=== PATIENT | male | born 1955 | race Caucasian/White ===

== ENCOUNTER 2019-03-08 09:04 | Inpatient (IN) ==
[2019-03-08] MEDS ORDERED: ASPIRIN CHEW 324 MG PO STA (09:15)
--- NOTE | 2019-03-08 09:33 | XRay Report ---
XR chest 1V portable CLINICAL HISTORY: Chest pain. COMPARISON STUDY: No previous studies for comparison. FINDINGS: Note is made of a cervical spine fusion. There is no pneumothorax. There may be a trace rig ht pleural effusion. Lower lung interstitial thickening and mild opacities are noted. Suspected Kerle y B lines are noted. Cardiac size is normal. Mediastinal contours are unremarkable. IMPRESSION: 1. Mild interstitial thickening which may reflect pulmonary edema. 2. Trace right pleural effusion. Mild bibasilar opacities. Electronically signed by: Jered Rangel M.D. 03/08/2019 9:32 AM
[2019-03-08 09:37] LABS: Basophils # (auto) 0.02 K/uL (0-0.2); Basophils % (auto) 0.2 %; Eosinophils # (auto) 0.09 K/uL (0-0.5); Eosinophils % (auto) 1.1 %; Hematocrit (blood only) 37.5 % (42-52); Hemoglobin 12.8 g/dL (14.0-18.0); Immature Granulocytes # (auto) 0.03 K/uL (0.00-0.02); Immature Granulocytes % (auto) 0.4 %; Lymphocytes # (auto) 1.08 K/uL (1.2-3.4); Lymphocytes % (auto) 13.3 %; Mean Corpuscular Hgb Conc 34.1 g/dL (32-36); Mean Platelet Volume 9.1 fL (7.4-10.4); Monocytes # (auto) 0.48 K/uL (0.11-0.59); Monocytes % (auto) 5.9 %; Neutrophils # (auto) 6.44 K/uL (1.4-6.5); Neutrophils % (auto) 79.1 %; Platelet Count 237 K/uL (130-400); RDW Coefficient of Variation 13.8 % (11.5-14.5); RDW Standard Deviation 44.8 fL (36.4-46.3); Red Blood Count 4.26 M/uL (4.7-6.1); White Blood Count 8.14 K/uL (4.8-10.8)
--- NOTE | 2019-03-08 09:42 | Emergency Department Note ---
Entered by Ava Diaz acting as a scribe for Shimon Arredondo DO History of Present Illness General Chief complaint: Chest Pain Stated complaint: CHEST PAIN Source: patient and family History of Present Illness Onset (ago): day(s) (this morning) Location: chest Radiation: back Severity: similar to prior episodes Pain Consistency: + other (episode) Maximum Pain Intensity: 5 Quality: + other (pressure) Relieved By: + rest Associated symptoms: + denies other symptoms (leg swelling, abdominal pain, diarrhea) and + diaphoresis; no nausea/vomiting (nausea) and no shortness of breath The patient is a 63-year-old male who presented to the emergency department for an evaluation of chest pain. The patient describes the chest pain as a pressure which wraps around his lower chest. He states it also is felt in his back. The patient states the pain does not go to his neck. It began this morning at approximately 6-6:30 am while he was walking into work. The patient states the pain his moderately improved with rest. He did take his usual medications this morning which included his Eliquis. The patient was seen recently by his primary aerial crop duster for atrial fibrillation. He had a transesophageal echocardiogram as well as a cardioversion of atrial fibrillation. The patient has not felt that he is gone back in atrial fibrillation. He denies having any lower extremity swelling. He does describe some diaphoresis but no shortness of breath. The patient states he has had similar symptoms in the past but he states that this episode has gone longer than usual otherwise it appears to be in the same position. Additional history is obtained from the patient's significant other. She states the patient was also started on a beta-bree after the cardioversion. The patient denies having any abdominal pain. He has no nausea or diarrhea. The patient called his primary aerial crop duster office and was sent to the emergency department for further evaluation. Home Medications Home Medications Medication Instructions Recorded Confirmed Type Eliquis 5 mg PO BID 03/06/19 03/08/19 History fenofibrate micronized 134 mg PO DAILY 03/06/19 03/08/19 History lansoprazole [Prevacid] 30 mg PO DAILY 03/06/19 03/08/19 History methotrexate sodium 12.5 mg PO WK 03/06/19 03/08/19 History polyethylene glycol 3350 [Miralax] 17 g PO DAILY 03/06/19 03/08/19 History rosuvastatin [Crestor] 10 mg PO DAILY 03/06/19 03/08/19 History tamsulosin [Flomax] 0.4 mg PO DAILY 03/06/19 03/08/19 History metoprolol succinate 25 mg PO HS 03/08/19 03/08/19 History Allergies Allergy/AdvReac Type Severity Reaction Status Date / Time acetaminophen Allergy Hives Verified 03/08/19 09:37 [From Darvocet-N] hydrocodone [From Vicodin] Allergy Hives Verified 03/08/19 09:37 propoxyphene Allergy Hives Verified 03/08/19 09:37 [From Darvocet-N] atorvastatin [From Lipitor] AdvReac Muscle Pain Verified 03/08/19 09:37 sulfamethoxazole AdvReac Chills/mallory Verified 03/08/19 09:37 [From Bactrim] rs trimethoprim [From Bactrim] AdvReac Chills/mallory Verified 03/08/19 09:37 rs Past Med/Surg History Medical History Psoriasis (Chronic) Esophageal reflux (Chronic) Mixed hyperlipidemia (Chronic) HTN (hypertension) (Chronic) Spinal stenosis (Chronic) Afib With SVR Surgical History H/O cervical spine surgery H/O lumbosacral spine surgery 2003, 2009 Family History Brother Myocardial infarction, Onset Age: 40 Brother Sudden , Onset Age: 80 Believed to be cardiac Father Dementia Mother Myocardial infarction, Onset Age: 70 Social History Preferred Language: Spanish Communication Ability: Effective 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 and A total of 10 systems reviewed and were otherwise negative Physical Exam Vital Signs Vital Signs - 24 hr 03/08/19 09:06 03/08/19 09:15 03/08/19 09:25 Temperature 36.5 C Temperature Source Oral Sepsis Recent Fever Within 48 Hours No Sepsis New/Unexplained Change in Mental Status No Sepsis Action Taken by Nursing No Action Required Pulse Rate 49 L 49 L 49 L Pulse Rate from SpO2 Sensor 49 L Pulse Rhythm Regular Respiratory Rate 18 20 18 Blood Pressure 140/84 122/75 Blood Pressure Mean 102 90 Pulse Oximetry 99 98 99 Oxygen Delivery Method Room Air Room Air 03/08/19 09:27 03/08/19 09:30 03/08/19 09:31 Temperature Temperature Source Sepsis Recent Fever Within 48 Hours Sepsis New/Unexplained Change in Mental Status Sepsis Action Taken by Nursing Pulse Rate 50 L 48 L 48 L Pulse Rate from SpO2 Sensor 49 L 45 L 44 L Pulse Rhythm Respiratory Rate 12 19 15 Blood Pressure 117/75 Blood Pressure Mean 89 Pulse Oximetry 98 96 98 Oxygen Delivery Method 03/08/19 09:40 03/08/19 09:50 03/08/19 10:00 Temperature Temperature Source Sepsis Recent Fever Within 48 Hours Sepsis New/Unexplained Change in Mental Status Sepsis Action Taken by Nursing Pulse Rate 44 L 48 L 45 L Pulse Rate from SpO2 Sensor 45 L 51 L 45 L Pulse Rhythm Respiratory Rate 16 10 L 14 Blood Pressure 114/71 Blood Pressure Mean 85 Pulse Oximetry 96 98 97 Oxygen Delivery Method 03/08/19 10:01 03/08/19 10:10 03/08/19 10:20 Temperature Temperature Source Sepsis Recent Fever Within 48 Hours Sepsis New/Unexplained Change in Mental Status Sepsis Action Taken by Nursing Pulse Rate 47 L 47 L 46 L Pulse Rate from SpO2 Sensor 49 L 47 L 46 L Pulse Rhythm Respiratory Rate 16 15 15 Blood Pressure Blood Pressure Mean Pulse Oximetry 97 99 96 Oxygen Delivery Method 03/08/19 10:30 03/08/19 10:40 03/08/19 10:50 Temperature Temperature Source Sepsis Recent Fever Within 48 Hours Sepsis New/Unexplained Change in Mental Status Sepsis Action Taken by Nursing Pulse Rate 48 L 44 L 44 L Pulse Rate from SpO2 Sensor 47 L 45 L 45 L Pulse Rhythm Respiratory Rate 17 14 13 Blood Pressure 113/69 Blood Pressure Mean 83 Pulse Oximetry 98 96 96 Oxygen Delivery Method 03/08/19 11:00 03/08/19 11:01 03/08/19 11:10 Temperature Temperature Source Sepsis Recent Fever Within 48 Hours Sepsis New/Unexplained Change in Mental Status Sepsis Action Taken by Nursing Pulse Rate 44 L 45 L 43 L Pulse Rate from SpO2 Sensor 44 L 46 L 44 L Pulse Rhythm Respiratory Rate 14 13 11 L Blood Pressure 103/68 Blood Pressure Mean 79 Pulse Oximetry 97 97 99 Oxygen Delivery Method GENERAL: Patient is awake alert in no acute distress patient is resting comfortably and showing no signs of anxiety EYES: The conjunctivae are clear. The pupils are round and reactive. EARS, NOSE, MOUTH AND THROAT: The nose is without any evidence of any deformity. Mucous membranes are moist tongue is midline NECK: The neck is nontender and supple. RESPIRATORY: Normal respiratory effort is noted there is no evidence of wheezing rhonchi or rales CARDIOVASCULAR: Regular rate and rhythm noted there no murmurs rubs or gallops normal S1 normal S2 GASTROINTESTINAL: The abdomen is soft. Bowel sounds are present in all quadrants. Abdomen is nontender MUSCULOSKELETAL/EXTREMITIES: There is no evidence of gross deformity full range of motion is noted in the hips and shoulders SKIN: There is no obvious evidence of any rash. There are no petechiae, pallor or cyanosis noted. NEUROLOGIC: Patient is awake alert and oriented x3. Course 0911: Past medical records reviewed. The patient was evaluated in room A9B. A complete history and physical exam was performed. 1022: I discussed the patient's case with Dr. Campos Cardiology. He reviewed the patient's EKG and feels he would be a good candidate for observation. 1034: Upon reevaluation, he is resting comfortably. I discussed findings and results with him. He verbalized agreement of the treatment plan. 1055: I discussed the patient's case with HAYLEY Malloy. She will evaluate the patient for evaluation. Consultations Consultation #1: I discussed the patient's case with Dr. Campos Cardiology. He reviewed the patient's EKG and feels he would be a good candidate for observation. Time: 10:22 Consultation #2: I discussed the patient's case with HAYLEY Malloy. She will evaluate the patient for evaluation. Time: 10:55 Administered Medications Discontinued Medications Acetaminophen (Tylenol) 650 mg PO Q4H PRN PRN Reason: Pain or Fever Stop: 04/07/19 12:36 Last Admin: 03/08/19 15:37 Dose: 650 mg Documented by: [id number] Hydrox/Mg Hydrox/Simethicone () 1 dose PO ONE ONE Stop: 03/08/19 10:26 Last Admin: 03/08/19 10:30 Dose: 1 dose Documented by: [id number] Aspirin (Aspirin) 324 mg PO NOW STA Stop: 03/08/19 09:16 Last Admin: 03/08/19 09:26 Dose: 324 mg Documented by: [id number] Furosemide 40 mg/ Syringe 4 mls @ 4 mls/min IV NOW ONE Stop: 03/08/19 12:31 Last Admin: 03/08/19 12:52 Dose: 4 mls/min Documented by: [id number] Pantoprazole Sodium (Protonix) 40 mg PO NOW STA Stop: 03/08/19 10:26 Last Admin: 03/08/19 10:30 Dose: 40 mg Documented by: [id number] Medical Decision Making Differential Diagnosis Etiologies such as cardiac ischemia, aortic dissection, pulmonary embolism, pneumonia, pneumothorax, musculoskeletal, infections, gastrointestinal, as well as others were entertained. Medical Records Attestation: I reviewed the patient's medical records. Home Medications Current Medication List: was personally reviewed by me Laboratory Data Attestation: I reviewed the patient's lab results. Result diagrams: 03/08/19 09:23 03/08/19 09:23 Lab Results 03/08/19 03/08/19 03/08/19 Range/Units 09:22 09:23 09:23 WBC 8.14 (4.8-10.8) K/uL RBC 4.26 L (4.7-6.1) M/uL Hgb 12.8 L (14.0-18.0) g/dL Hct 37.5 L (42-52) % MCV 88.0 (80-100) fL MCH 30.0 (25-34) pg MCHC 34.1 (32-36) g/dL RDW Std Deviation 44.8 (36.4-46.3) fL RDW Coeff of Avril 13.8 (11.5-14.5) % Plt Count 237 (130-400) K/uL MPV 9.1 (7.4-10.4) fL Immature Gran % (Auto) 0.4 % Neut % (Auto) 79.1 % Lymph % (Auto) 13.3 % Cooke % (Auto) 5.9 % Eos % (Auto) 1.1 % Baso % (Auto) 0.2 % Immature Gran # (Auto) 0.03 H (0.00-0.02) K/uL Neut # (Auto) 6.44 (1.4-6.5) K/uL Lymph # (Auto) 1.08 L (1.2-3.4) K/uL Cooke # (Auto) 0.48 (0.11-0.59) K/uL Eos # (Auto) 0.09 (0-0.5) K/uL Baso # (Auto) 0.02 (0-0.2) K/uL PT 11.1 (9.0-12.0) Seconds INR 1.1 (0.9-1.1) APTT 29.9 (21.0-31.0) Seconds PTT Ratio 1.1 Sodium (136-145) mmol/L Potassium (3.5-5.1) mmol/L Chloride (98-107) mmol/L Carbon Dioxide (21-32) mmol/L Anion Gap (3-11) BUN (7-18) mg/dl Creatinine (0.6-1.4) mg/dl Est Cr Clr Drug Dosing ml/min Est GFR ( Amer) Est GFR (Non-Af Amer) BUN/Creatinine Ratio (10-20) Glucose (70-99) mg/dl Calcium (8.5-10.1) mg/dl Total Bilirubin (0.2-1) mg/dl AST (15-37) U/L ALT (12-78) U/L Alkaline Phosphatase (45-117) U/L Total Creatine Kinase (39-308) U/L CK-MB (CK-2) (0.5-3.6) ng/ml CK/CKMB % Calc (0-3.0) Troponin I (0-0.045) ng/ml NT-Pro-B Natriuret Pep (0-900) pg/ml Total Protein (6.4-8.2) gm/dl Albumin (3.4-5.0) gm/dl Globulin (2.5-4.0) gm/dl Albumin/Globulin Ratio (0.9-2) Lipase (73-393) U/L TSH 0.509 (0.300-4.500) uIu/ml 03/08/19 03/08/19 Range/Units 09:23 09:23 WBC (4.8-10.8) K/uL RBC (4.7-6.1) M/uL Hgb (14.0-18.0) g/dL Hct (42-52) % MCV (80-100) fL MCH (25-34) pg MCHC (32-36) g/dL RDW Std Deviation (36.4-46.3) fL RDW Coeff of Avril (11.5-14.5) % Plt Count (130-400) K/uL MPV (7.4-10.4) fL Immature Gran % (Auto) % Neut % (Auto) % Lymph % (Auto) % Cooke % (Auto) % Eos % (Auto) % Baso % (Auto) % Immature Gran # (Auto) (0.00-0.02) K/uL Neut # (Auto) (1.4-6.5) K/uL Lymph # (Auto) (1.2-3.4) K/uL Cooke # (Auto) (0.11-0.59) K/uL Eos # (Auto) (0-0.5) K/uL Baso # (Auto) (0-0.2) K/uL PT (9.0-12.0) Seconds INR (0.9-1.1) APTT (21.0-31.0) Seconds PTT Ratio Sodium 140 (136-145) mmol/L Potassium 4.4 (3.5-5.1) mmol/L Chloride 109 H (98-107) mmol/L Carbon Dioxide 27 (21-32) mmol/L Anion Gap 4.0 (3-11) BUN 21 H (7-18) mg/dl Creatinine 1.10 (0.6-1.4) mg/dl Est Cr Clr Drug Dosing 82.0 ml/min Est GFR ( Amer) 83.5 Est GFR (Non-Af Amer) 72.1 BUN/Creatinine Ratio 19.2 (10-20) Glucose 101 H (70-99) mg/dl Calcium 9.1 (8.5-10.1) mg/dl Total Bilirubin 0.6 (0.2-1) mg/dl AST 93 H (15-37) U/L ALT 76 (12-78) U/L Alkaline Phosphatase 62 (45-117) U/L Total Creatine Kinase 169 (39-308) U/L CK-MB (CK-2) 2.0 (0.5-3.6) ng/ml CK/CKMB % Calc 1.2 (0-3.0) Troponin I < 0.015 (0-0.045) ng/ml NT-Pro-B Natriuret Pep 311 (0-900) pg/ml Total Protein 7.2 (6.4-8.2) gm/dl Albumin 3.8 (3.4-5.0) gm/dl Globulin 3.4 (2.5-4.0) gm/dl Albumin/Globulin Ratio 1.1 (0.9-2) Lipase 106 (73-393) U/L TSH (0.300-4.500) uIu/ml Imaging Data Radiologist's Impression: Radiology results as stated below per my review and the radiologist's interpretation: XR chest 1V portable CLINICAL HISTORY: Chest pain. COMPARISON STUDY: No previous studies for comparison. FINDINGS: Note is made of a cervical spine fusion. There is no pneumothorax. There may be a trace right pleural effusion. Lower lung interstitial thickening and mild opacities are noted. Suspected Lee B lines are noted. Cardiac size is normal. Mediastinal contours are unremarkable. IMPRESSION: 1. Mild interstitial thickening which may reflect pulmonary edema. 2. Trace right pleural effusion. Mild bibasilar opacities. Electronically signed by: Jered Rangel M.D. 03/08/2019 9:32 AM ECG Data Attestation: I personally reviewed and interpreted this ECG as follows: Indication: chest pain Rate (beats per minute): 52 Rhythm: sinus bradycardia Findings: no PAC, no PVC, no ST depression, no ST elevation, no acute ischemic change and no ectopy Comparison ECG Date: from (03/06/2019) Change: the following changes noted (increased rate, otherwise no change) Blood Pressure Blood Pressure Findings: Elevated blood pressure Blood Pressure Disposition: Referred to patients primary care provider MDM Narrative The patient is a 63-year-old male who presented to the emergency department for an evaluation of chest pain. The patient describes lower chest pain which he describes as a tightening. The patient has a history of atrial fibrillation and was recently cardioverted with a transesophageal echo 2 days ago. He was also started on a beta-bree at that time. The patient has an EKG which shows no acute ischemic changes compared to previous. He also has a negative troponin at this time. The patient was treated with aspirin GI cocktail and Protonix. He is feeling much better at this time. I discussed his case with his covering [facility] aerial crop duster. I also discussed his case with the on-call [facility] hospitalist. They have agreed to evaluate the patient in the emergency department for further management disposition. I discussed the patient's laboratory and radiographic studies with him. I also discussed the limitations of the emergency department work-up for chest pain with him. Impression & Plan Chest pain, Paroxysmal A-fib, Bradycardia Discharge Plan Visit Data *Final* Discharge Date/Time: 03/08/19 11:50 Chief Complaint: Chest Pain Stated Complaint: CHEST PAIN ED Provider: Shimon Arredondo Discharge Problem: Chest pain, Paroxysmal A-fib, Bradycardia Patient Disposition: Admitted As Inpatient Discharge Instructions Interventions: ED Discharge Assessment Last Done: 03/08/19 11:50 Discharge Problem: Chest pain Qualifiers: Chest pain type: unspecified Qualified Code(s): R07.9 - Chest pain, unspecified The scribe's documentation has been prepared under my direction and personally reviewed by me in its entirety. I confirm that the note above accurately reflects all work, treatment, procedures, and medical decision making performed by me.
[2019-03-08 09:49] LABS: INR 1.1 (0.9-1.1); Partial Thromboplastin Ratio 1.1; Partial Thromboplastin Time 29.9 Seconds (21.0-31.0); Prothrombin Time 11.1 Seconds (9.0-12.0)
[2019-03-08 09:53] LABS: Alanine Aminotransferase 76 U/L (12-78); Albumin Level 3.8 gm/dl (3.4-5.0); Aspartate Aminotransferase 93 U/L (15-37); BUN Creatinine Ratio 19.2 (10-20); Blood Urea Nitrogen 21 mg/dl (7-18); Calcium 9.1 mg/dl (8.5-10.1); Carbon Dioxide 27 mmol/L (21-32); Chloride 109 mmol/L (98-107); Est GFR (African American) 83.5; Est GFR (Non-African American) 72.1; Glucose 101 mg/dl (70-99); Lipase 106 U/L (73-393); Potassium 4.4 mmol/L (3.5-5.1); Sodium 140 mmol/L (136-145)
[2019-03-08 09:58] LABS: Albumin Globulin Ratio 1.1 (0.9-2); Alkaline Phosphatase 62 U/L (45-117); Bilirubin,Total 0.6 mg/dl (0.2-1); Creatine Kinase 169 U/L (39-308); Globulin 3.4 gm/dl (2.5-4.0); Total Protein 7.2 gm/dl (6.4-8.2); Troponin I < 0.015 ng/ml (0-0.045)
[2019-03-08] MEDS ORDERED: PANTOprazole 40 MG TAB PO STA (10:25)
[2019-03-08] MEDS ORDERED: GI COCKTAIL ED USE PO ONE (10:25)
--- NOTE | 2019-03-08 11:52 | History & Physical Report ---
Date of Service March 08, 2019 Assessment & Plan (1) Chest pain: This is a 63-year-old male with significant past medical history of persistent A. fib s/p cardioversion on eliquis, sinus bradycardia, history of RBBB, psoriasis on methotrexate, HLD, GERD, BPH who presents to [facility] due to chest pain that started at 5:45 am. In ED patient remained hemodynamically stable. ECG unchanged from prior revealing sinus bradycardia without ST or T wave changes Troponin WNL Chest x-ray reviewed and compared to outpatient x-ray done on 02/27 (normal), now reveals pulmonary vascular congestion with bibasilar infiltrates concerning for congestion Feel sx less likely related to ACS; but may be clinically significant for CHF Ddx: arrhythmia, GERD, infectious, pericarditis Admit to PCU Obtain proBNP Lasix 40 mg IV x1 now Cycle troponins x2 Repeat ECG Monitor on telemetry cardiology consulted Pt had echocardiogram 02/26 will defer to cardiology for need for repeat Lipid panel and A1c in a.m. daily weights low Na diet (2) Bradycardia: known hx of sinus bradycardia Pt does complain of dizzy/lightheaded with movement hold metoprolol for now until eval by cardiology monitor on tele (3) Afib: s/p VIRGIE and direct cardioversion 03/[address] Mccallum and Dr. Cruz rhythm regular, but slow Known sinus bradycardia HR in 40s-50s with multiple PAC while in ED hold metoprolol for now until eval by cardiology (4) Anemia: H&H 12.8 and 37.5 After reviewing lab work in [facility] patient's H&H has down trended since September/2018 where it was 14 and 41.9 Normocytic normochromic, may be in setting of chronic disease state with psoriasis will obtain iron panel, folic acid, B12 level (5) Mixed hyperlipidemia: Continue Crestor Obtain fasting lipid panel AST elevated 93, monitor LFTs (6) Esophageal reflux: Patient did receive GI cocktail and Protonix while in ED Symptoms do not appear to be GI related, he is chronically on Prevacid will monitor (7) Psoriasis: Continue methotrexate add Folic acid (8) BPH (benign prostatic hyperplasia): Continue Flomax (9) DVT prophylaxis: SCD/TEDS Eliquis Disposition: to be determined Follow up: PCP Vikki Turcios PA-C upon discharge Patient was seen and examined in collaboration with Dr. Nails, please see addendum Starting 03/08/19 pt will be under the care of Dr. Paula History of Present Illness Chief Complaint: Chest pain started at 5:45 AM. Primary Care Provider: Vikki Turcios PA-C This is a 63-year-old male with significant past medical history of persistent A. fib s/p cardioversion on eliquis, sinus bradycardia, history of RBBB, psoriasis on methotrexate, HLD, GERD who presents to [facility] due to chest pain that started at 5:45 am. is at bedside. Patient was walking into work this morning when he noticed precordial chest pain, rated 5/10, described as a "sharp pressure," nonradiating, got worse as he kept walking but improved when he got into work and sat down, although still present. He had associated dyspnea on exertion. Never had anything like this in the past. Was not made worse with deep inspiration, to touch or movement. Symptoms did slightly relieve when in ER and received aspirin, GI cocktail and Protonix, but currently rated 2/10. Over the past 2 weeks notes he has been increasingly fatigued and sleeping often. She relates this is unlike him as he is always on the go. Per outpatient records he is to undergo sleep study. He denies any fluctuation in weight, recent illness, fever, chills, sweats, shortness breath at rest, palpitations, edema, nausea, vomiting, diarrhea, change in bowel or urinary habits. He elicited he woke up at 330 this morning secondary to similar chest discomfort, but less severe and resolved within minutes. He also had associated shortness of breath. Of significance over the past 2 weeks patient has been diagnosed with persistent atrial fibrillation and initiated on Eliquis. Initially saw PCP on 02/20 in which atrial fibrillation was found on ECG. Placed on Eliquis and referred to cardiology. He underwent echocardiogram on 02/26 which revealed LVEF 65% with moderate left atrial enlargement. Further underwent exercise stress test which 18 6 minutes with 90% maximum heart rate. At rest atrial fibrillation was noted with slow ventricular response. With stress equivocal 0.5-1mm horizontal/downslopping ST-segment depression noted in inferior leads. Due to persistence of A. fib it was recommended he undergo VIRGIE with direct cardioversion. Patient underwent VIRGIE with cardioversion on 03/[address] Cruz and Dr. Mccallum, tolerated procedure well. Was initiated on metoprolol succinate 25 mg at bedtime. Allergies Allergy/AdvReac Type Severity Reaction Status Date / Time acetaminophen Allergy Hives Verified 03/08/19 09:37 [From Darvocet-N] hydrocodone [From Vicodin] Allergy Hives Verified 03/08/19 09:37 propoxyphene Allergy Hives Verified 03/08/19 09:37 [From Darvocet-N] atorvastatin [From Lipitor] AdvReac Muscle Pain Verified 03/08/19 09:37 sulfamethoxazole AdvReac Chills/mallory Verified 03/08/19 09:37 [From Bactrim] rs trimethoprim [From Bactrim] AdvReac Chills/mallory Verified 03/08/19 09:37 rs Home Medications Home Medications Medication Instructions Recorded Confirmed Type Eliquis 5 mg PO BID 03/06/19 03/08/19 History fenofibrate micronized 134 mg PO DAILY 03/06/19 03/08/19 History lansoprazole [Prevacid] 30 mg PO DAILY 03/06/19 03/08/19 History methotrexate sodium 12.5 mg PO WK 03/06/19 03/08/19 History polyethylene glycol 3350 [Miralax] 17 g PO DAILY 03/06/19 03/08/19 History rosuvastatin [Crestor] 10 mg PO DAILY 03/06/19 03/08/19 History tamsulosin [Flomax] 0.4 mg PO DAILY 03/06/19 03/08/19 History metoprolol succinate 25 mg PO HS 03/08/19 03/08/19 History Past Med/Surg History Medical History Psoriasis (Chronic) Esophageal reflux (Chronic) Mixed hyperlipidemia (Chronic) HTN (hypertension) (Chronic) Spinal stenosis (Chronic) Afib With SVR Surgical History H/O cervical spine surgery H/O lumbosacral spine surgery 2003, 2009 Family History Brother Myocardial infarction, Onset Age: 40 Brother Sudden , Onset Age: 80 Believed to be cardiac Father Dementia Mother Myocardial infarction, Onset Age: 70 Social History Preferred Language: Yakut Communication Ability: Effective Aperture Mask Etcher Required: No Beliefs That Will Affect Care: None marital status: Current Living Situation: Spouse current occupational status: employed Other Information That Helps Us Care for You: No Feels Safe at Home: Yes Safety Concerns: Feels Safe At This Time Smoking Status: Former smoker Tobacco Type: cigarettes ; Do You Dip or Chew Tobacco: No ; Smoking End Date: 1991 ; Second Hand Exposure: No ; Tobacco C essation Education Requested by Patient: No Hx Alcohol Use: No Hx Substance Use: No Review of Systems Review of Systems: All systems reviewed & are unremarkable except as noted in HPI & below Physical Exam Physical Exam: Constitutional: WD/WN, vitals as above, NAD, sitting up in bed, pleasant, conversing easily Head: Normocephalic, Atraumatic Eyes: PERRL, conjunctivae normal, anicteric sclerae ENMT: external ear and nose normal, oropharynx normal Neck: trachea midline, no thyromegaly normal visual inspection Respiratory: normal respiratory effort, lungs clear to auscultation, no wheeze, rales, rhonchi. Normal insp/exp effort, no accessory muscle use Cardiovascular: bradycardic rate regular rhythm, no murmur, trace pretibial edema Vessels: no JVD or carotid bruit Chest: normal inspection of chest Abdomen: normal bowel sounds, soft, nontender, no hepatosplenomegaly Musculoskeletal: no cyanosis or clubbing, extremities motor strength 5/5 Skin: no rashes, warm and dry normal turgor Neurologic: PERRL, EOMI, accommodation nl, no face palsy, no dysarthria CN's II-XI intact bilaterally and moves all extremities Psychiatric: A+Ox3, euthymic affect Lymphatic: no cervical or axillary lymphadenopathy : deferred Results & Data Vital Signs (Past 12 Hours) Vital Signs Temp Pulse Resp BP Pulse Ox 03/08/19 11:01 45 L 13 97 03/08/19 11:00 44 L 14 103/68 97 03/08/19 10:50 44 L 13 96 03/08/19 10:40 44 L 14 96 03/08/19 10:30 48 L 17 113/69 98 03/08/19 10:20 46 L 15 96 03/08/19 10:10 47 L 15 99 03/08/19 10:01 47 L 16 97 03/08/19 10:00 45 L 14 114/71 97 03/08/19 09:50 48 L 10 L 98 03/08/19 09:40 44 L 16 96 03/08/19 09:31 48 L 15 98 03/08/19 09:30 48 L 19 117/75 96 03/08/19 09:27 50 L 12 98 03/08/19 09:25 49 L 18 122/75 99 03/08/19 09:15 49 L 20 98 03/08/19 09:06 36.5 C 49 L 18 140/84 99 Laboratory Results Short CBC 03/08/19 Range/Units 09:23 WBC 8.14 (4.8-10.8) K/uL Hgb 12.8 L (14.0-18.0) g/dL Hct 37.5 L (42-52) % Plt Count 237 (130-400) K/uL BMP 03/08/19 09:23 Sodium 140 Potassium 4.4 Chloride 109 H Carbon Dioxide 27 BUN 21 H Creatinine 1.10 Glucose 101 H Calcium 9.1 Cardiac Enzymes 03/08/19 Range/Units 09:23 Total Creatine Kinase 169 (39-308) U/L CK-MB (CK-2) 2.0 (0.5-3.6) ng/ml Troponin I < 0.015 (0-0.045) ng/ml Liver Function 03/08/19 Range/Units 09:23 Total Bilirubin 0.6 (0.2-1) mg/dl AST 93 H (15-37) U/L ALT 76 (12-78) U/L Alkaline Phosphatase 62 (45-117) U/L Albumin 3.8 (3.4-5.0) gm/dl Diagnostic Findings CXR: IMPRESSION: 1. Mild interstitial thickening which may reflect pulmonary edema. 2. Trace right pleural effusion. Mild bibasilar opacities. Medications Administered Discontinued Medications Al Hydrox/Mg Hydrox/Simethicone () 1 dose PO ONE ONE Stop: 03/08/19 10:26 Last Admin: 03/08/19 10:30 Dose: 1 dose Documented by: [id number] Aspirin (Aspirin) 324 mg PO NOW STA Stop: 03/08/19 09:16 Last Admin: 03/08/19 09:26 Dose: 324 mg Documented by: [id number] Pantoprazole Sodium (Protonix) 40 mg PO NOW STA Stop: 03/08/19 10:26 Last Admin: 03/08/19 10:30 Dose: 40 mg Documented by: [id number] Code Status & VTE Plan Code Status full code VTE Prophylaxis Plan VTE Prophylaxis will be ordered: Yes Supervising Physician Co-Signing Physician Notes Attending addendum The patient was seen and examined in the emergency room He has been complaining of exertional chest pain with shortness of breath for the last 2 days He has had VIRGIE cardioversion on the of this month and was given beta- bree for the heart and blood pressure He denies any weight gain, fever and/or chills. He did not have any of these symptoms before On examination Lying in bed anxiously No apparent distress at the Hemodynamically stable with the heart rate of about 51 Chest-bibasilar crackles Heart-S1-S2, regular Abdomen-benign Extremities-trace to 1+ edema bilaterally lieutenant/deputy-alert, awake and oriented x3 Admission labs and imaging studies reviewed EKG reviewed-bradycardia without any significant ST-T wave changes Agree with assessment and plan as outlined above by HAYLEY Neff Dr (1) Chest pain Chest pain type: unspecified Qualified Code(s): R07.9 - Chest pain, unspecified
[2019-03-08] MEDS ORDERED: FUROSEMIDE 40 MG/4 ML VIAL IV STA (12:08)
[2019-03-08] MEDS ORDERED: FUROSEMIDE 40 MG in SYRINGE 0 ML IV ONE (12:30)
[2019-03-08] MEDS ORDERED: ONDANSETRON INJ 2 MG/ML 2 ML VIAL IV PRN (12:37)
[2019-03-08] MEDS ORDERED: MAGNESIUM HYDROXIDE SUSP 30 ML UDC PO PRN (12:37)
[2019-03-08] MEDS ORDERED: ALUMINUM/MAGNESIUM SUSP 30 ML UDC PO PRN (12:37)
[2019-03-08] MEDS ORDERED: POLYETHYLENE (MIRALAX) 17 GM PACK PO PRN (12:37)
[2019-03-08] MEDS ORDERED: ACETAMINOPHEN 325 MG TAB PO PRN (12:37)
[2019-03-08] MEDS ORDERED: NITROGLYCERIN SL 0.4 MG/TAB TAB SL PRN (12:37)
--- NOTE | 2019-03-08 13:41 | Cardiology Consultation ---
Date of Consultation March 08, 2019 Assessment & Plan (1) Acute diastolic (congestive) heart failure: (2) Atypical chest pain: (3) Symptomatic bradycardia: (4) Paroxysmal atrial fibrillation: Patient admitted with atypical chest discomfort and worsening dyspnea on exertion attributed to acute decompensated diastolic heart failure/pulmonary edema related to recent cardioversion. Reduced cardiac output post cardioversion secondary to bradycardia with additional beta-bree therapy. Recommend holding Toprol at this time. Begin IV diuretic therapy, Lasix 40 mg IV x1 and observe clinical response. Patient may require an additional dose this evening and/or prior to discharge. He is scheduled for cardiac CT on March 18 for further evaluation of chest discomfort. Trend cardiac enzymes x3 sets. Monitor telemetry during hospitalization. Currently, no overt indication for pacemaker implantation, however, will continue to follow closely during hospitalization of beta-bree therapy. Thank you for allowing me to participate in the care of your patient. History of Present Illness Reason for Consultation: Chest pain Requesting Physician: Dr. Nails Attending Physician: Iris Nails MD History of Present Illness 63-year-old patient presented emergency department with epigastric and lower substernal chest discomfort as well as dyspnea and rest and exertion. Patient awoke early this morning feeling acutely short of breath. Symptoms improved subtly and he proceeded to travel to his worksite. Walking to the parking lot he noticed sharp and stabbing epigastric and lower substernal chest pain. The pain became quite severe and he was taken to the first-aid area. Patient referred to the emergency department for further evaluation and treatment. Marked sinus bradycardia noted on admission with heart rate as low as 39 bpm. Recent history significant for transesophageal echo guided cardioversion 03/06/2019. Patient cardioverted from rate controlled atrial fibrillation to sinus bradycardia. Low-dose metoprolol added at the time of cardioversion. Patient reports dyspnea on exertion, extreme fatigue, as well as daytime somnolence since cardioversion. Symptoms have been present for several weeks, however, more severe since recent procedure. is present at bedside voicing concern regarding 's lack of energy and stamina. Patient reports orthopnea without paroxysmal nocturnal dyspnea. Treated with GI cocktail, aspirin, and Protonix on admission. Epigastric discomfort has improved significantly. Currently consuming his midday meal. Initial cardiac enzymes are negative. No significant ST changes on ECG. Transesophageal echocardiogram report summary 03/06/2019: Normal left ventricular systolic function, ejection fraction 55 to 60%, mild right ventricular dilatation, normal right ventricular systolic function, mild mitral regurgitation. Mild tricuspid regurgitation. No evidence of pulmonary hypertension. Intact interatrial septum. Allergies Allergy/AdvReac Type Severity Reaction Status Date / Time acetaminophen Allergy Hives Verified 03/08/19 09:37 [From Darvocet-N] hydrocodone [From Vicodin] Allergy Hives Verified 03/08/19 09:37 propoxyphene Allergy Hives Verified 03/08/19 09:37 [From Darvocet-N] atorvastatin [From Lipitor] AdvReac Muscle Pain Verified 03/08/19 09:37 sulfamethoxazole AdvReac Chills/mallory Verified 03/08/19 09:37 [From Bactrim] rs trimethoprim [From Bactrim] AdvReac Chills/mallory Verified 03/08/19 09:37 rs Home Medications Home Medications Medication Instructions Recorded Confirmed Type Eliquis 5 mg PO BID 03/06/19 03/08/19 History fenofibrate micronized 134 mg PO DAILY 03/06/19 03/08/19 History lansoprazole [Prevacid] 30 mg PO DAILY 03/06/19 03/08/19 History methotrexate sodium 12.5 mg PO WK 03/06/19 03/08/19 History polyethylene glycol 3350 [Miralax] 17 g PO DAILY 03/06/19 03/08/19 History rosuvastatin [Crestor] 10 mg PO DAILY 03/06/19 03/08/19 History tamsulosin [Flomax] 0.4 mg PO DAILY 03/06/19 03/08/19 History metoprolol succinate 25 mg PO HS 03/08/19 03/08/19 History Patient History Medical History Psoriasis (Chronic) Esophageal reflux (Chronic) Mixed hyperlipidemia (Chronic) HTN (hypertension) (Chronic) Spinal stenosis (Chronic) Afib With SVR Surgical History H/O cervical spine surgery H/O lumbosacral spine surgery 2003, 2009 Family History Brother Myocardial infarction, Onset Age: 40 Brother Sudden , Onset Age: 80 Believed to be cardiac Father Dementia Mother Myocardial infarction, Onset Age: 70 Social History Preferred Language: Latvian Communication Ability: Effective Cyber Engineer Required: No Beliefs That Will Affect Care: None marital status: Current Living Situation: Spouse current occupational status: employed Other Information That Helps Us Care for You: No Feels Safe at Home: Yes Safety Concerns: Feels Safe At This Time Smoking Status: Former smoker Tobacco Type: cigarettes ; Do You Dip or Chew Tobacco: No ; Smoking End Date: 1991 ; Second Hand Exposure: No ; Tobacco Cessation Education Requested by Patient: No Hx Alcohol Use: No Hx Substance Use: No Review of Systems Review of Systems: All systems reviewed & are unremarkable except as noted in HPI & below Physical Exam Physical Exam: General: NAD, AAO x3, well nourished. HEENT: Normocephalic. Atraumatic. Conjunctiva pink, no scleral icterus. Neck: No carotid bruits, the carotid upstrokes are brisk. No JVD. No HJR Heart: Regular, bradycardic, normal S-1 and S-2 no S-3 or S-4 gallop. No murmurs or rub appreciated. PMI is not di splaced. No RV heave. Lungs: + Rales at the bases bilaterally, no rhonchi or wheeze. Abdomen: Normal bowel sounds. Soft. Nontender. No masses or organomegaly. No abdominal bruits. Extremities: No clubbing, cyanosis, or edema. Pulses: radial=2/4, Dorsalis pedis =2/4, posterior tibial=2/4. Neuro: Cranial nerves grossly intact. No focal motor deficit. Results & Data Vital Signs (Past 12 Hours) Vital Signs Temp Pulse Resp BP Pulse Ox 03/08/19 11:41 94 03/08/19 11:31 51 L 15 99 03/08/19 11:30 46 L 13 107/69 99 03/08/19 11:20 49 L 22 96 03/08/19 11:10 43 L 11 L 99 03/08/19 11:01 45 L 13 97 03/08/19 11:00 44 L 14 103/68 97 03/08/19 10:50 44 L 13 96 03/08/19 10:40 44 L 14 96 03/08/19 10:30 48 L 17 113/69 98 03/08/19 10:20 46 L 15 96 03/08/19 10:10 47 L 15 99 03/08/19 10:01 47 L 16 97 03/08/19 10:00 45 L 14 114/71 97 03/08/19 09:50 48 L 10 L 98 03/08/19 09:40 44 L 16 96 03/08/19 09:31 48 L 15 98 03/08/19 09:30 48 L 19 117/75 96 03/08/19 09:27 50 L 12 98 03/08/19 09:25 49 L 18 122/75 99 03/08/19 09:15 49 L 20 98 03/08/19 09:06 36.5 C 49 L 18 140/84 99 Laboratory Results Laboratory Results - last 24 hr 03/08/19 03/08/19 03/08/19 09:22 09:23 09:23 WBC 8.14 RBC 4.26 L Hgb 12.8 L Hct 37.5 L MCV 88.0 MCH 30.0 MCHC 34.1 RDW Std Deviation 44.8 RDW Coeff of Avril 13.8 Plt Count 237 MPV 9.1 Immature Gran % (Auto) 0.4 Neut % (Auto) 79.1 Lymph % (Auto) 13.3 [place] % (Auto) 5.9 Eos % (Auto) 1.1 Baso % (Auto) 0.2 Immature Gran # (Auto) 0.03 H Neut # (Auto) 6.44 Lymph # (Auto) 1.08 L [place] # (Auto) 0.48 Eos # (Auto) 0.09 Baso # (Auto) 0.02 PT 11.1 INR 1.1 APTT 29.9 PTT Ratio 1.1 Sodium Potassium Chloride Carbon Dioxide Anion Gap BUN Creatinine Est Cr Clr Drug Dosing Est GFR ( Amer) Est GFR (Non-Af Amer) BUN/Creatinine Ratio Glucose Calcium Total Bilirubin AST ALT Alkaline Phosphatase Total Creatine Kinase CK-MB (CK-2) CK/CKMB % Calc Troponin I NT-Pro-B Natriuret Pep Total Protein Albumin Globulin Albumin/Globulin Ratio Lipase TSH 0.509 03/08/19 03/08/19 09:23 09:23 WBC RBC Hgb Hct MCV MCH MCHC RDW Std Deviation RDW Coeff of Avril Plt Count MPV Immature Gran % (Auto) Neut % (Auto) Lymph % (Auto) [place] % (Auto) Eos % (Auto) Baso % (Auto) Immature Gran # (Auto) Neut # (Auto) Lymph # (Auto) [place] # (Auto) Eos # (Auto) Baso # (Auto) PT INR APTT PTT Ratio Sodium 140 Potassium 4.4 Chloride 109 H Carbon Dioxide 27 Anion Gap 4.0 BUN 21 H Creatinine 1.10 Est Cr Clr Drug Dosing 82.0 Est GFR ( Amer) 83.5 Est GFR (Non-Af Amer) 72.1 BUN/Creatinine Ratio 19.2 Glucose 101 H Calcium 9.1 Total Bilirubin 0.6 AST 93 H ALT 76 Alkaline Phosphatase 62 Total Creatine Kinase 169 CK-MB (CK-2) 2.0 CK/CKMB % Calc 1.2 Troponin I < 0.015 NT-Pro-B Natriuret Pep 311 Total Protein 7.2 Albumin 3.8 Globulin 3.4 Albumin/Globulin Ratio 1.1 Lipase 106 TSH
[2019-03-08] MEDS ORDERED: TRAMADOL HCL 50 MG TABLET PO STA (17:54)
[2019-03-08] MEDS ORDERED: ACETAMINOPHEN 500 MG TAB PO PRN (17:56)
[2019-03-08] MEDS: FENOFIBRATE: ORDER AWAITING ACTION SCH (18:13)
[2019-03-08] MEDS: APIXABAN 5 MG TABLET PO SCH (20:41)
[2019-03-09] MEDS: FENOFIBRATE: ORDER AWAITING ACTION SCH ×3 (00:45→16:43)
[2019-03-09 05:56] LABS: Hematocrit (blood only) 36.1 % (42-52); Hemoglobin 12.2 g/dL (14.0-18.0); Mean Corpuscular Hemoglobin 29.6 pg (25-34); Mean Corpuscular Hgb Conc 33.8 g/dL (32-36); Mean Corpuscular Volume 87.6 fL (80-100); Mean Platelet Volume 9.4 fL (7.4-10.4); Platelet Count 234 K/uL (130-400); RDW Coefficient of Variation 13.8 % (11.5-14.5); RDW Standard Deviation 43.7 fL (36.4-46.3); Red Blood Count 4.12 M/uL (4.7-6.1); White Blood Count 6.86 K/uL (4.8-10.8)
[2019-03-09 06:35] LABS: Albumin Globulin Ratio 1.2 (0.9-2); Albumin Level 3.7 gm/dl (3.4-5.0); BUN Creatinine Ratio 20.6 (10-20); Bilirubin,Total 0.7 mg/dl (0.2-1); Calcium 8.7 mg/dl (8.5-10.1); Creatinine Clr Calc Pharmacy 78.4 ml/min; Est GFR (African American) 79.2; Est GFR (Non-African American) 68.3; Ferritin 573.2 ng/ml (8-388); Globulin 3.1 gm/dl (2.5-4.0); Potassium 3.7 mmol/L (3.5-5.1); Total Protein 6.8 gm/dl (6.4-8.2)
[2019-03-09 06:59] LABS: Estimated Average Glucose 105 mg/dl; Hemoglobin A1C 5.3 % (4.5-5.6)
[2019-03-09] MEDS: FOLIC ACID 1 MG TAB PO SCH (08:08)
[2019-03-09] MEDS: APIXABAN 5 MG TABLET PO SCH ×2 (08:08→20:06)
[2019-03-09] MEDS: ROSUVASTATIN CALCIUM 10 MG TAB PO SCH (08:08)
[2019-03-09] MEDS: TAMSULOSIN HCL 0.4 MG CAP PO SCH (08:08)
[2019-03-09] MEDS: PANTOprazole 40 MG TAB PO SCH (08:09)
[2019-03-09] MEDS ORDERED: POLYETHYLENE (MIRALAX) 17 GM PACK PO SCH (09:00)
[2019-03-09] MEDS: TRAMADOL HCL 50 MG TABLET PO PRN ×2 (10:28→20:05)
--- NOTE | 2019-03-09 10:38 | Cardiology Progress Note ---
Date of Service March 09, 2019 Assessment & Plan (1) Acute diastolic (congestive) heart failure: Clinically improved after single dose of diuresis still dyspneic with activity. (2) Atypical chest pain: (3) Symptomatic bradycardia: (4) Paroxysmal atrial fibrillation: Patient admitted with atypical chest discomfort and worsening dyspnea on exertion attributed to acute decompensated diastolic heart failure/pulmonary edema related to recent cardioversion. Reduced cardiac output post cardioversion secondary to bradycardia with additional beta-bree therapy. Patient remains bradycardic at rest and dyspneic with exertion with minimal change in heart rate. We will continue observe on telemetry maintain an all-time Suspect patient will require pacemaker at some point time question this admission versus post hospital discharge Subjective Patient seen and examined, chart, medications, telemetry reviewed. Still very dyspneic with minimal exertion. But no rest dyspnea. Remains in marked bradycardia with rates in the 30s overnight. No syncope or near syncope. No dizziness or lightheadedness Physical Exam Constitutional: WD/WN, vitals as above Eyes: PERRL, conjunctivae normal, anicteric sclerae ENMT: external ear and nose normal, oropharynx normal Neck: trachea midline, no thyromegaly Respiratory: normal respiratory effort, lungs clear to auscultation Cardiovascular: Rate/Rhythm: regular rate, regular rhythm and + bradycardic Heart Sounds: normal S1 and normal S2; no gallop and no murmur Palpation: normal PMI Vessels: normal carotid upstroke and radial pulses present; no JVD and no carotid bruit Extremities: no edema Gastrointestinal (Abdomen): normal bowel sounds, soft, nontender, no hepatosplenomegaly Musculoskeletal: no cyanosis or clubbing, extremities motor strength 5/5 Skin: no rashes, warm and dry Neurologic: PERRL, EOMI, accommodation nl, no face palsy, no dysarthria Psychiatric: A+Ox3, euthymic affect Results & Data Vital Signs (Past 12 Hours) Vital Signs Temp Pulse Resp BP Pulse Ox 03/09/19 07:36 36.3 C L 45 L 16 114/74 96 03/09/19 03:49 36.4 C L 44 L 18 101/65 97 03/08/19 23:30 36.4 C L 43 L 18 104/67 96 Laboratory Results Laboratory Results - last 24 hr 03/08/19 03/08/19 03/08/19 09:22 09:23 15:15 WBC RBC Hgb Hct MCV MCH MCHC RDW Std Deviation RDW Coeff of Avril Plt Count MPV Sodium Potassium Chloride Carbon Dioxide Anion Gap BUN Creatinine Est Cr Clr Drug Dosing Est GFR ( Amer) Est GFR (Non-Af Amer) BUN/Creatinine Ratio Glucose Estimat Average Glucose Hemoglobin A1c Calcium Iron TIBC Transferrin Ferritin Total Bilirubin AST ALT Alkaline Phosphatase Troponin I < 0.015 NT-Pro-B Natriuret Pep 311 Total Protein Albumin Globulin Albumin/Globulin Ratio Triglycerides Cholesterol LDL Cholesterol, Calc VLDL Cholesterol, Calc HDL Cholesterol Cholesterol/HDL Ratio Vitamin B12 Folate TSH 0.509 03/08/19 03/09/19 03/09/19 21:00 05:17 05:17 WBC 6.86 RBC 4.12 L Hgb 12.2 L Hct 36.1 L MCV 87.6 MCH 29.6 MCHC 33.8 RDW Std Deviation 43.7 RDW Coeff of Avril 13.8 Plt Count 234 MPV 9.4 Sodium 140 Potassium 3.7 D Chloride 107 Carbon Dioxide 28 Anion Gap 5.0 BUN 24 H Creatinine 1.15 Est Cr Clr Drug Dosing 78.4 Est GFR ( Amer) 79.2 Est GFR (Non-Af Amer) 68.3 BUN/Creatinine Ratio 20.6 H Glucose 93 Estimat Average Glucose Hemoglobin A1c Calcium 8.7 Iron 53 TIBC 329 Transferrin 258 Ferritin 573.2 H Total Bilirubin 0.7 AST 36 ALT 57 Alkaline Phosphatase 61 Troponin I < 0.015 NT-Pro-B Natriuret Pep Total Protein 6.8 Albumin 3.7 Globulin 3.1 Albumin/Globulin Ratio 1.2 Triglycerides 119 Cholesterol 140 LDL Cholesterol, Calc 70 VLDL Cholesterol, Calc 24 HDL Cholesterol 46 Cholesterol/HDL Ratio 3 Vitamin B12 Folate TSH 03/09/19 03/09/19 05:17 05:17 WBC RBC Hgb Hct MCV MCH MCHC RDW Std Deviation RDW Coeff of Avril Plt Count MPV Sodium Potassium Chloride Carbon Dioxide Anion Gap BUN Creatinine Est Cr Clr Drug Dosing Est GFR ( Amer) Est GFR (Non-Af Amer) BUN/Creatinine Ratio Glucose Estimat Average Glucose 105 Hemoglobin A1c 5.3 Calcium Iron TIBC Transferrin Ferritin Total Bilirubin AST ALT Alkaline Phosphatase Troponin I NT-Pro-B Natriuret Pep Total Protein Albumin Globulin Albumin/Globulin Ratio Triglycerides Cholesterol LDL Cholesterol, Calc VLDL Cholesterol, Calc HDL Cholesterol Cholesterol/HDL Ratio Vitamin B12 384 Folate 13.00 TSH
--- NOTE | 2019-03-09 14:04 | Hospitalist Progress Note ---
Date of Service March 09, 2019 Assessment & Plan (1) Symptomatic bradycardia: Improved from a heart failure standpoint, however persistent bradycardia despite holding beta-bree. Incomplete right bundle branch block and first- degree AV block are present on EKG. He is symptomatic, and therefore will stay in the hospital pending recommendations on pacemaker placement per cardiology team. No AV srinivas blockers will be given. (2) Acute diastolic (congestive) heart failure: Recently with worsening dyspnea on exertion after VIRGIE cardioversion. Reports that dyspnea on exertion was present prior to procedure as well, but was not worse. Appears compensated after diuresis overnight with net 2 L out; persistent mild bilateral crackles at the bases of the lungs. No hypoxia is present. No further diuretic is indicated at this time. Continue to monitor daily weights and continue low-salt diet. (3) Atypical chest pain: Resolved after diuretic given. ACS ruled out overnight. Denies any chest pain overnight or currently. (4) Paroxysmal atrial fibrillation: Recently underwent VIRGIE cardioversion earlier this week with subsequent conversion to sinus rhythm. Continues on Eliquis and Toprol has been stopped in the setting of symptomatic bradycardia. Continue to monitor on telemetry. (5) Esophageal reflux: Protonix (6) Psoriasis: Continue methotrexate and folate (7) BPH (benign prostatic hyperplasia): Flomax (8) DVT prophylaxis: Eliquis Full Code Disposition: Pending cardiology recommendations and pacemaker placement during his hospitalization. Minerva Paula DO [facility] Hospitalist Subjective 63-year-old man with a history of sinus bradycardia who is been having fatigue and dyspnea on exertion for 2 months. He was found to have atrial fibrillation with slow ventricular response was started on Eliquis on 02/20/2019. Based on symptoms related to the atrial fibrillation a VIRGIE guided cardioversion was recommended and performed on 03/06/2019. The patient recovered well and was sent home on metoprolol 25 mg at bedtime. 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 Yesterday as he was walking into work he developed left anterior chest pain which improved with rest and worsened with exertion. He was found to be fluid overloaded and was given 1 dose of Lasix with good response. He appears clinically compensated today but is still lightheaded with ambulation and bradycardia was noted on telemetry overnight. Review of Systems Review of Systems: All systems reviewed & are unremarkable except as noted in HPI & below Physical Exam Physical Exam: CONSTITUTIONAL: WNWD, vitals as above, generally well- appearing EYES: pupils are equal and round bilaterally, normal conjunctivae, no scleral icterus ENT: MMM RESPIRATORY: some crackles at lung bases bilaterally, good air movement both sides. Normal respiratory effort, no wheezes or rales. CARDIOVASCULAR: regular rate and rhythm, S1 and 2 heard without murmurs, gallops or rubs, no JVD, no peripheral edema GASTROINTESTINAL: normal bowel sounds, soft, nontender,nondistended MUSCULOSKELETAL: strength 5/5 throughout, head is normocephalic and atraumatic SKIN: warm and dry NEUROLOGIC: No facial palsy, no dysarthria. CN 2-12 grossly intact, no gross focal deficit. PSYCHIATRIC: alert cooperative and oriented to person, place and time. Results & Data Vital Signs (Past 12 Hours) Vital Signs Temp Pulse Resp BP Pulse Ox 03/09/19 11:40 36.4 C L 46 L 17 121/78 96 03/09/19 07:36 36.3 C L 45 L 16 114/74 96 03/09/19 03:49 36.4 C L 44 L 18 101/65 97 Laboratory Results Short CBC 03/09/19 Range/Units 05:17 WBC 6.86 (4.8-10.8) K/uL Hgb 12.2 L (14.0-18.0) g/dL Hct 36.1 L (42-52) % Plt Count 234 (130-400) K/uL BMP 03/09/19 05:17 Sodium 140 Potassium 3.7 D Chloride 107 Carbon Dioxide 28 BUN 24 H Creatinine 1.15 Glucose 93 Calcium 8.7 Cardiac Enzymes 03/08/19 03/08/19 Range/Units 15:15 21:00 Troponin I < 0.015 < 0.015 (0-0.045) ng/ml Liver Function 03/09/19 Range/Units 05:17 Total Bilirubin 0.7 (0.2-1) mg/dl AST 36 (15-37) U/L ALT 57 (12-78) U/L Alkaline Phosphatase 61 (45-117) U/L Albumin 3.7 (3.4-5.0) gm/dl Diagnostic Findings XR chest 1V portable CLINICAL HISTORY: Chest pain. COMPARISON STUDY: No previous studies for comparison. FINDINGS: Note is made of a cervical spine fusion. There is no pneumothorax. There may be a trace right pleural effusion. Lower lung interstitial thickening and mild opacities are noted. Suspected Lee B lines are noted. Cardiac size is normal. Mediastinal contours are unremarkable. IMPRESSION: 1. Mild interstitial thickening which may reflect pulmonary edema. 2. Trace right pleural effusion. Mild bibasilar opacities. Medications Administered Current Inpatient Medications Acetaminophen (Tylenol) 1,000 mg PO Q8H PRN PRN Reason: Pain or Fever Stop: 04/07/19 12:36 Al Hydrox/Mg Hydrox/Simethicone (Maalox) 15 ml PO Q4H PRN PRN Reason: Dyspepsia Stop: 04/07/19 12:36 Apixaban (Eliquis) 5 mg PO BID [facility] Stop: 04/07/19 20:59 Last Admin: 03/09/19 08:08 Dose: 5 mg Documented by: Folic Acid (Folvite) 1 mg PO QAM [facility] Stop: 04/08/19 08:59 Last Admin: 03/09/19 08:08 Dose: 1 mg Documented by: Magnesium Hydroxide (Milk Of Magnesia) 30 ml PO Q12H PRN PRN Reason: Constipation Stop: 04/07/19 12:36 Miscellaneous (Order Awaiting Action) 1 ea N/A QS [facility] Stop: 04/07/19 15:59 Last Admin: 03/09/19 08:08 Dose: Not Given Documented by: Nitroglycerin (Nitrostat) 0.4 mg SL UD PRN PRN Reason: Chest Pain Stop: 04/07/19 12:36 Ondansetron HCl (Zofran) 4 mg IV Q6H PRN PRN Reason: Nausea Stop: 04/07/19 12:36 Pantoprazole Sodium (Protonix) 40 mg PO DAILY [facility] Stop: 04/08/19 08:59 Last Admin: 03/09/19 08:09 Dose: 40 mg Documented by: Polyethylene Glycol (Miralax Powder Packet) 17 gm PO DAILY [facility] Stop: 04/08/19 08:59 Last Admin: 03/09/19 08:09 Dose: Not Given Documented by: Rosuvastatin Calcium (Crestor) 10 mg PO DAILY [facility] Stop: 04/08/19 08:59 Last Admin: 03/09/19 08:08 Dose: 10 mg Documented by: Tamsulosin HCl (Flomax) 0.4 mg PO DAILY [facility] Stop: 04/08/19 08:59 Last Admin: 03/09/19 08:08 Dose: 0.4 mg Documented by: Tramadol HCl (Ultram) 50 mg PO Q6H PRN PRN Reason: Pain Stop: 04/08/19 09:45 Last Admin: 03/09/19 10:28 Dose: 50 mg Documented by:
[2019-03-09] MEDS ORDERED: POLYETHYLENE (MIRALAX) 17 GM PACK PO PRN (15:17)
[2019-03-10] MEDS: FENOFIBRATE: ORDER AWAITING ACTION SCH ×2 (00:12→08:27)
[2019-03-10 05:57] LABS: Hematocrit (blood only) 36.6 % (42-52); Hemoglobin 12.3 g/dL (14.0-18.0); Mean Corpuscular Hemoglobin 29.4 pg (25-34); Mean Corpuscular Hgb Conc 33.6 g/dL (32-36); Mean Corpuscular Volume 87.6 fL (80-100); Mean Platelet Volume 9.3 fL (7.4-10.4); Platelet Count 237 K/uL (130-400); RDW Coefficient of Variation 13.6 % (11.5-14.5); RDW Standard Deviation 43.3 fL (36.4-46.3); Red Blood Count 4.18 M/uL (4.7-6.1); White Blood Count 7.28 K/uL (4.8-10.8)
[2019-03-10 06:33] LABS: BUN Creatinine Ratio 17.9 (10-20); Calcium 8.7 mg/dl (8.5-10.1); Creatinine Clr Calc Pharmacy 70.4 ml/min; Est GFR (African American) 70.9; Est GFR (Non-African American) 61.2; Magnesium 2.5 mg/dl (1.8-2.4); Potassium 4.2 mmol/L (3.5-5.1)
[2019-03-10] MEDS: APIXABAN 5 MG TABLET PO SCH (08:26)
[2019-03-10] MEDS: ROSUVASTATIN CALCIUM 10 MG TAB PO SCH (08:27)
[2019-03-10] MEDS: FOLIC ACID 1 MG TAB PO SCH (08:27)
[2019-03-10] MEDS: TAMSULOSIN HCL 0.4 MG CAP PO SCH (08:27)
[2019-03-10] MEDS: PANTOprazole 40 MG TAB PO SCH (08:27)
--- NOTE | 2019-03-10 09:47 | Cardiology Progress Note ---
Date of Service March 10, 2019 Assessment & Plan (1) Paroxysmal atrial fibrillation: Patient admitted with atypical chest discomfort and worsening dyspnea on exertion attributed to acute decompensated diastolic heart failure/pulmonary edema related to recent cardioversion. Reduced cardiac output post cardioversion secondary to bradycardia with additional beta-bree therapy. No further atrial fibrillation. Bradycardia improving off of beta-bree therapy. Patient will likely require pacemaker as part of long-term management though no indications for acute insertion. Patient has planned evaluation of ischemic heart disease with cardiac CT in the next 1 to 2 weeks Plan on discharging to home today avoiding all strenuous activity to complete outpatient work-up before pacemaker insertion. No metoprolol on discharge Patient to return if any worsening symptoms (2) Symptomatic bradycardia: (3) Acute diastolic (congestive) heart failure: Clinically improved no current symptoms. Suspect post cardioversion/bradycardia induced (4) Atypical chest pain: Subjective Patient seen and examined, chart, medications, telemetry reviewed. No acute complaints patient ambulatory in room. Heart rates trending slightly higher predominantly in the low 50s. No pauses or profound bradycardia. No tachyarrhythmias of significant No worsening dyspnea patient ambulatory in room Physical Exam Constitutional: WD/WN, vitals as above Eyes: PERRL, conjunctivae normal, anicteric sclerae ENMT: external ear and nose normal, oropharynx normal Neck: trachea midline, no thyromegaly Respiratory: normal respiratory effort, lungs clear to auscultation Cardiovascular: Rate/Rhythm: regular rate, regular rhythm and + bradycardic Heart Sounds: normal S1 and normal S2; no gallop and no murmur Palpation: normal PMI Vessels: normal carotid upstroke and radial pulses present; no JVD and no carotid bruit Extremities: no edema Gastrointestinal (Abdomen): normal bowel sounds, soft, nontender, no hepatosplenomegaly Musculoskeletal: no cyanosis or clubbing, extremities motor strength 5/5 Skin: no rashes, warm and dry Neurologic: PERRL, EOMI, accommodation nl, no face palsy, no dysarthria Psychiatric: A+Ox3, euthymic affect Results & Data Vital Signs (Past 12 Hours) Vital Signs Temp Pulse Pulse Resp BP Pulse Ox 03/10/19 08:30 46 L 03/10/19 07:26 36.5 C 52 L 17 114/69 98 03/10/19 03:48 36.7 C 95 H 14 124/85 96 03/10/19 00:00 48 L 03/09/19 23:13 36.6 C 48 L 18 95/59 L 98 Laboratory Results Laboratory Results - last 24 hr 03/10/19 03/10/19 05:32 05:32 WBC 7.28 RBC 4.18 L Hgb 12.3 L Hct 36.6 L MCV 87.6 MCH 29.4 MCHC 33.6 RDW Std Deviation 43.3 RDW Coeff of Avril 13.6 Plt Count 237 MPV 9.3 Sodium 139 Potassium 4.2 Chloride 105 Carbon Dioxide 30 Anion Gap 4.0 BUN 23 H Creatinine 1.26 Est Cr Clr Drug Dosing 70.4 Est GFR ( Amer) 70.9 Est GFR (Non-Af Amer) 61.2 BUN/Creatinine Ratio 17.9 Glucose 93 Calcium 8.7 Magnesium 2.5 H ECG Additional Comments: 10-MAR-2019 07:06:24 [facility] ROUTINE RETRIEVAL Sinus bradycardia with 1st degree A-V block Incomplete right bundle branch block Borderline ECG When compared with ECG of 09-MAR-2019 07:38, No significant change was found
--- NOTE | 2019-03-10 10:48 | Discharge Summary ---
Date of Service March 10, 2019 Admission HPI Per Admitting Provider This is a 63-year-old male with significant past medical history of persistent A. fib s/p cardioversion on eliquis, sinus bradycardia, history of RBBB, psoriasis on methotrexate, HLD, GERD who presents to [facility] ED due to chest pain that started at 5:45 am. is at bedside. Patient was walking into work this morning when he noticed precordial chest pain, rated 5/10, described as a "sharp pressure," nonradiating, got worse as he kept walking but improved when he got into work and sat down, although still present. He had associated dyspnea on exertion. Never had anything like this in the past. Was not made worse with deep inspiration, to touch or movement. Symptoms did slightly relieve when in ER and received aspirin, GI cocktail and Protonix, but currently rated 2/10. Over the past 2 weeks notes he has been increasingly fatigued and sleeping often. She relates this is unlike him as he is always on the go. Per outpatient records he is to undergo sleep study. He denies any fluctuation in weight, recent illness, fever, chills, sweats, shortness breath at rest, palpitations, edema, nausea, vomiting, diarrhea, change in bowel or urinary habits. He elicited he woke up at 330 this morning secondary to similar chest discomfort, but less severe and resolved within minutes. He also had associated shortness of breath. Of significance over the past 2 weeks patient has been diagnosed with persistent atrial fibrillation and initiated on Eliquis. Initially saw PCP on 02/20 in which atrial fibrillation was found on ECG. Placed on Eliquis and referred to cardiology. He underwent echocardiogram on 02/26 which revealed LVEF 65% with moderate left atrial enlargement. Further underwent exercise stress test which 18 6 minutes with 90% maximum heart rate. At rest atrial fibrillation was noted with slow ventricular response. With stress equivocal 0.5-1mm horizontal/downslopping ST-segment depression noted in inferior leads. Due to persistence of A. fib it was recommended he undergo VIRGIE with direct cardioversion. Patient underwent VIRGIE with cardioversion on 03/[address] Cruz and Dr. Mccallum, tolerated procedure well. Was initiated on metoprolol succinate 25 mg at bedtime. Admission Exam Per Admitting Provider Constitutional: WD/WN, vitals as above, NAD, sitting up in bed, pleasant, conversing easily Head: Normocephalic, Atraumatic Eyes: PERRL, conjunctivae normal, anicteric sclerae ENMT: external ear and nose normal, oropharynx normal Neck: trachea midline, no thyromegaly normal visual inspection Respiratory: normal respiratory effort, lungs clear to auscultation, no wheeze, rales, rhonchi. Normal insp/exp effort, no accessory muscle use Cardiovascular: bradycardic rate regular rhythm, no murmur, trace pretibial edema Vessels: no JVD or carotid bruit Chest: normal inspection of chest Abdomen: normal bowel sounds, soft, nontender, no hepatosplenomegaly Musculoskeletal: no cyanosis or clubbing, extremities motor strength 5/5 Skin: no rashes, warm and dry normal turgor Neurologic: PERRL, EOMI, accommodation nl, no face palsy, no dysarthria CN's II-XI intact bilaterally and moves all extremities Psychiatric: A+Ox3, euthymic affect Lymphatic: no cervical or axillary lymphadenopathy : deferred Principal Diagnosis symptomatic bradycardia acute diastolic heart failure s/p VIRGIE cardioversion Discharge Data Allergies Allergy/AdvReac Type Severity Reaction Status Date / Time acetaminophen Allergy Hives Verified 03/11/19 22:41 [From Darvocet-N] hydrocodone [From Vicodin] Allergy Hives Verified 03/11/19 22:41 propoxyphene Allergy Hives Verified 03/11/19 22:41 [From Darvocet-N] atorvastatin [From Lipitor] AdvReac Muscle Pain Verified 03/11/19 22:41 sulfamethoxazole AdvReac Chills/mallory Verified 03/11/19 22:41 [From Bactrim] rs trimethoprim [From Bactrim] AdvReac Chills/mallory Verified 03/11/19 22:42 rs Consultations 03/08/19 10:55 ED Decision to Admit Stat 03/08/19 12:37 Consult Cardiology Routine Hospital Course (1) Acute diastolic (congestive) heart failure: Recently with worsening dyspnea on exertion after VIRGIE cardioversion. Appears compensated after diuresis overnight with net 2 L out with diuresis. No hypoxia is present. No further diuretic is indicated at this time. Continue to monitor daily weights and continue low-salt diet at home with close outpatient cardiology follow-up. (2) Symptomatic bradycardia: Some symptoms present despite holding beta-bree. Expect this will either improve or patient may need a pacemaker down the road. Per Cards will hold all AV srinivas blockers and see in the clinic for close follow-up. (3) Atypical chest pain: Resolved after diuretic given. ACS ruled out overnight. Denies any chest pain overnight or currently. (4) Paroxysmal atrial fibrillation: Recently underwent VIRGIE cardioversion earlier this week with subsequent conversion to sinus rhythm. Continues on Eliquis and Toprol has been stopped in the setting of symptomatic bradycardia. Remained in sinus rhythm throughout the hospitalization while being monitored on telemetry. At time of discharge a face to face examination was performed revealing a hemodynamically stable and afebrile patient in no acute distress. Cardiac exam revealed S1/2 heard with regular rate and rhythm. The patient was compensated and euvolemic. Lungs were clear to auscultation bilaterally. He was mentating and ambulating at baseline and was tolerating PO. He was somewhat lightheaded with exertion but this was expected to improve off metoprolol. He was sent home in stable condition with close primary care and cardiology follow-up. Total Time Total Time Spent Total Time Spent (In Minutes): 60 Total Time Includes: Examination of the Patient, Discharge Planning, Medication Reconciliation and Communication With Other Providers Discharge Plan Discharge Items Patient Disposition: Home - Self-Care Reason For Visit: CHEST PAIN Discharge Diagnosis: symptomatic bradycardia acute diastolic heart failure s/p VIRGIE cardioversion Condition: Good Discharge Goals: Decrease discomfort and Diagnostic testing Activity: Resume your previous activity Activity Comment: no working until cardiac evaluation is complete Lifting: Gradually increase as tolerated Bathing: No limitations Exercise/Sports: Wait until after follow-up appointment Driving/Machine Use Comment: restrict driving until after follow-up appointment. Weightbearing: Full weightbearing Non-emergency contact: Primary Care Provider and Explosive [employer]dn[employer] Disposal Technician Call non-emergency contact if: you have any medication questions, your symptoms worsen, your pain is not controlled, your pain is worsening, your pain is unusual for you, your pain is concerning for you and you have a fever Follow-up/Referrals: Yousuf Cruz DO [Explosive [employer]dnance Disposal Technician] - Vikik Turcios PA-C [Primary Care Provider] - Diet: Heart Healthy Addtl Provider Instructions: Please take all medications as instructed. It is recommended that you follow-up with your primary care provider within one week of discharge. At this appointment, they will ensure you are able to get all your pending cardiac studies, and make sure your symptoms are improving off the metoprolol. Please stop the metoprolol. It was a pleasure taking care of you! Please call if you have any questions or problems. You can reach a [facility] hospitalist on duty at [facility] 24 hours a day by calling [phone]. Take care of yourself. Minerva Paula, DO [facility] Hospitalist Prescriptions: Continued polyethylene glycol 3350 [Miralax] 17 gram Powder In Packet 17 g PO DAILY RF: 0 fenofibrate micronized 134 mg Capsule 134 mg PO DAILY RF: 0 methotrexate sodium 2.5 mg Tablet 12.5 mg PO WK RF: 0 tamsulosin [Flomax] 0.4 mg Capsule 0.4 mg PO DAILY RF: 0 lansoprazole [Prevacid] 30 mg Capsule,Delayed Release(Dr/Ec) 30 mg PO DAILY RF: 0 rosuvastatin [Crestor] 10 mg Tablet 10 mg PO DAILY RF: 0 Eliquis 5 mg Tablet 5 mg PO BID RF: 0 Discontinued metoprolol succinate 25 mg tablet extended release 24 hr 25 mg PO HS RF: 0 Stand-Alone Forms: Call Back Authorization, [facility], Work/School Release (Inpt) Discharge Orders: Discharge Order (Routine); Ordered 03/10/19 Ordered By: Minerva Paula Admission Data Admit Date/Time: 03/09/19 15:16 Attending Provider: Minerva Paula Admit Provider: Iris Nails Primary Care Provider: Vikki Turcios Other Providers: Iris Nails ; Yousuf Cruz Service: Telemetry Other Interventions: Discharge Summary Assessment (RN) Last Done: 03/10/19 11:28 DC Date/Time DO NOT enter until pt leaves facility: 03/10/19 12:18
== END 2019-03-10 12:18 | disposition home or self-care (01) | DRG 308 ==
LOC: ED 09:04 → 2S 09:04 → SUATTDRO 11:11 → 2S 11:50
DX: I48.91 Unspecified atrial fibrillation; E78.5 Hyperlipidemia, unspecified; R07.9 Chest pain, unspecified; I50.31 Acute diastolic (congestive) heart failure; E78.2 Mixed hyperlipidemia; D64.9 Anemia, unspecified; K21.9 Gastro-esophageal reflux disease without esophagitis; L40.9 Psoriasis, unspecified; N40.0 Benign prostatic hyperplasia without lower urinary tract symptoms; Z79.01 Long term (current) use of anticoagulants; R00.1 Bradycardia, unspecified

== ENCOUNTER 2019-03-11 21:50 | Inpatient (IN) ==
[2019-03-11 22:27] LABS: Basophils # (auto) 0.05 K/uL (0-0.2); Eosinophils # (auto) 0.19 K/uL (0-0.5); Eosinophils % (auto) 3.8 %; Hematocrit (blood only) 40.2 % (42-52); Hemoglobin 13.9 g/dL (14.0-18.0); Immature Granulocytes # (auto) 0.03 K/uL (0.00-0.02); Immature Granulocytes % (auto) 0.6 %; Lymphocytes # (auto) 1.27 K/uL (1.2-3.4); Lymphocytes % (auto) 25.3 %; Mean Corpuscular Hgb Conc 34.6 g/dL (32-36); Mean Corpuscular Volume 85.7 fL (80-100); Mean Platelet Volume 9.3 fL (7.4-10.4); Monocytes # (auto) 0.67 K/uL (0.11-0.59); Monocytes % (auto) 13.4 %; Neutrophils % (auto) 55.9 %; Platelet Count 245 K/uL (130-400); RDW Coefficient of Variation 13.6 % (11.5-14.5); Red Blood Count 4.69 M/uL (4.7-6.1); White Blood Count 5.01 K/uL (4.8-10.8)
--- NOTE | 2019-03-11 22:30 | XRay Report ---
XR chest 1V portable CLINICAL HISTORY: 63 years-old Male presenting with Chest Pain. TECHNIQUE: Portable upright AP view of the chest was obtained. COMPARISON: 03/08/2019. FINDINGS: Atherosclerosis of the aortic arch. Cardiac silhouette mildly enlarged. No focal opacity. No large ef fusion or pneumothorax. Cervical fusion hardware. Degenerative changes of the spine. Upper abdomen no rmal. IMPRESSION: 1. Mild cardiomegaly. No other convincing evidence of acute cardiopulmonary disease. Electronically signed by: Stephen Womack M.D. 03/11/2019 10:28 PM
[2019-03-11] MEDS ORDERED: NITROGLYCERIN SL 0.4 MG/TAB TAB SL STA (22:33)
[2019-03-11 22:39] LABS: iSTAT Creatinine 1.6 mg/dl (0.6-1.3); iSTAT Hemoglobin 13.6 g/dl (14.0-18.0); iSTAT Ionized Calcium 1.21 mmol/l (1.12-1.32); iSTAT Potassium 4.1 mEq/L (3.3-5.0)
[2019-03-11 22:45] LABS: Alanine Aminotransferase 37 U/L (12-78); Aspartate Aminotransferase 21 U/L (15-37); BUN Creatinine Ratio 13.2 (10-20); Blood Urea Nitrogen 21 mg/dl (7-18); Calcium 9.7 mg/dl (8.5-10.1); Carbon Dioxide 25 mmol/L (21-32); Chloride 108 mmol/L (98-107); Est GFR (African American) 54.8; Est GFR (Non-African American) 47.2; Glucose 111 mg/dl (70-99); Potassium 4.2 mmol/L (3.5-5.1); Sodium 141 mmol/L (136-145)
[2019-03-11 22:50] LABS: Albumin Globulin Ratio 1.1 (0.9-2); Alkaline Phosphatase 77 U/L (45-117); Bilirubin,Total 0.6 mg/dl (0.2-1); Globulin 3.7 gm/dl (2.5-4.0); NT Pro B Type Natriuretic Pept 593 pg/ml (0-900); Total Protein 7.7 gm/dl (6.4-8.2); Troponin I < 0.015 ng/ml (0-0.045)
[2019-03-11] MEDS ORDERED: NITROGLYCERIN 2% OINTMENT 30GM TUBE EXT STA (22:58)
--- NOTE | 2019-03-11 23:11 | Emergency Department Note ---
History of Present Illness General Chief complaint: Chest Pain Stated complaint: CHEST PAIN, SOB- CARDIAC HX History of Present Illness Maximum Pain Intensity: 6 This 63-year-old presents to the ER complaining of chest pain Location: Mid chest Quality: Pressure Severity: Moderate Duration: Today Timing: Started around 2 PM Context: Symptoms became constant and patient was concerned and came in Modifying factors: better with rest; worse with activity Patient was cardioverted last week and then came back the other day for heart failure. He is supposed to get a stress echo next week. He is supposed to get set up for a pacemaker. Patient is on Eliquis. He has a history of A. fib. Patient complains of exertional chest pain with mild dyspnea. Patient states he feels like he might be back in heart failure. Patient denies fevers, abdominal pain, leg pain or swelling, weight gain. Home Medications Home Medications Medication Instructions Recorded Confirmed Type Eliquis 5 mg PO BID 03/06/19 03/11/19 History fenofibrate micronized 134 mg PO DAILY 03/06/19 03/11/19 History lansoprazole [Prevacid] 30 mg PO DAILY 03/06/19 03/11/19 History methotrexate sodium 12.5 mg PO WK 03/06/19 03/11/19 History polyethylene glycol 3350 [Miralax] 17 g PO DAILY 03/06/19 03/11/19 History rosuvastatin [Crestor] 10 mg PO DAILY 03/06/19 03/11/19 History tamsulosin [Flomax] 0.4 mg PO DAILY 03/06/19 03/11/19 History Allergies Allergy/AdvReac Type Severity Reaction Status Date / Time acetaminophen Allergy Hives Verified 03/11/19 22:41 [From Darvocet-N] hydrocodone [From Vicodin] Allergy Hives Verified 03/11/19 22:41 propoxyphene Allergy Hives Verified 03/11/19 22:41 [From Darvocet-N] atorvastatin [From Lipitor] AdvReac Muscle Pain Verified 03/11/19 22:41 sulfamethoxazole AdvReac Chills/mallory Verified 03/11/19 22:41 [From Bactrim] rs trimethoprim [From Bactrim] AdvReac Chills/mallory Verified 03/11/19 22:42 rs Past Med/Surg History Medical History Psoriasis (Chronic) Esophageal reflux (Chronic) Mixed hyperlipidemia (Chronic) HTN (hypertension) (Chronic) Spinal stenosis (Chronic) Afib With SVR Surgical History H/O cervical spine surgery H/O lumbosacral spine surgery 2003, 2009 Family History Brother Myocardial infarction, Onset Age: 40 Brother Sudden , Onset Age: 80 Believed to be cardiac Father Dementia Mother Myocardial infarction, Onset Age: 70 Social History Preferred Language: Czech Communication Ability: Effective Fha Underwriter Required: No Beliefs That Will Affect Care: None marital status: Current Living Situation: Spouse current occupational status: employed Feels Safe at Home: Yes Smoking Status: Never smoker Tobacco Type: cigarettes ; Second Hand Exposure: No ; Hx Alcohol Use: No Hx Substance Use: No Review of Systems All systems reviewed & are unremarkable except as noted in HPI & below Physical Exam Vital Signs Vital Signs - 24 hr 03/11/19 21:54 03/11/19 22:33 03/11/19 22:34 Temperature 36.5 C Temperature Source Oral Sepsis Recent Fever Within 48 Hours No Sepsis New/Unexplained Change in Mental Status No Sepsis Action Taken by Nursing No Action Required Pulse Rate 76 67 Pulse Rate [Finger] Pulse Rate from SpO2 Sensor 65 Respiratory Rate 16 18 Respiratory Effort / Characteristics Non-Labored Spontaneous Respiratory Depth Normal Blood Pressure 124/79 130/75 Blood Pressure [Left Arm] Blood Pressure Mean 94 93 Blood Pressure Mean [Left Arm] Pulse Oximetry 95 92 93 Oxygen Delivery Method Room Air Room Air 03/11/19 23:00 03/11/19 23:16 Temperature Temperature Source Sepsis Recent Fever Within 48 Hours Sepsis New/Unexplained Change in Mental Status Sepsis Action Taken by Nursing Pulse Rate 69 Pulse Rate [Finger] 65 Pulse Rate from SpO2 Sensor 64 Respiratory Rate 21 16 Respiratory Effort / Characteristics Non-Labored Spontaneous Respiratory Depth Normal Blood Pressure 121/66 Blood Pressure [Left Arm] 121/66 Blood Pressure Mean 84 Blood Pressure Mean [Left Arm] 84 Pulse Oximetry 93 95 Oxygen Delivery Method Room Air VITALS: Vitals are noted on the nurse's note and reviewed by myself. Vital signs stable. GENERAL: Pleasant male, in no acute distress, nondiaphoretic, well-developed well-nourished. SKIN: The skin was without rashes, erythema, edema, or bruising. There is no tenting of the skin. Capillary reflex less than 2 seconds. HEAD: Normocephalic atraumatic. EARS: External auditory canals clear EYES: Pupils equal round and reactive to light and accommodation. Conjunctivae without injection, sclerae without icterus. Extraocular movements intact. NOSE: Patent, turbinates without inflammation or discharge. MOUTH: Mucous membranes moist. Pharynx without erythema or exudate. Uvula midline. Airway patent. Tongue does not deviate. NECK: Supple without nuchal rigidity. No lymphadenopathy. No thyromegaly. Cervical spine is nontender. No JVD. HEART: Irregularly irregular LUNGS: Clear to auscultation bilaterally without wheezes, rales or rhonchi. No retractions or accessory muscle use. ABDOMEN: Positive bowel sounds x 4. Normal tympanic percussion. Soft, nontender, without masses or organomegaly. Deleon sign negative. No guarding or rebound tenderness. No CVA tenderness MUSCULOSKELETAL: No muscle atrophy, erythema, or edema noted. NEURO: Patient was alert and oriented to person place and time. Normal sensati on to light and sharp touch. No focal neurological deficits. Course Administered Medications Discontinued Medications Nitroglycerin (Nitrostat) 0.4 mg SL NOW STA Stop: 03/11/19 22:34 Last Admin: 03/11/19 22:40 Dose: 0.4 mg Documented by: [id number] Nitroglycerin (Nitro-Bid 2%) 0.5 inch EXT NOW STA Stop: 03/11/19 22:59 Last Admin: 03/11/19 23:15 Dose: Not Given Documented by: [id number] Medical Decision Making Medical Records Attestation: I reviewed the patient's medical records. Home Medications Current Medication List: was personally reviewed by me Laboratory Data Attestation: I reviewed the patient's lab results. Result diagrams: 03/11/19 22:18 03/11/19 22:18 Lab Results 03/11/19 03/11/19 03/11/19 Range/Units 22:18 22:18 22:18 WBC 5.01 (4.8-10.8) K/uL RBC 4.69 L (4.7-6.1) M/uL Hgb 13.9 L (14.0-18.0) g/dL POC Hgb (14.0-18.0) g/dl Hct 40.2 L (42-52) % POC Hct (42-52) % MCV 85.7 (80-100) fL MCH 29.6 (25-34) pg MCHC 34.6 (32-36) g/dL RDW Std Deviation 42.0 (36.4-46.3) fL RDW Coeff of Avril 13.6 (11.5-14.5) % Plt Count 245 (130-400) K/uL MPV 9.3 (7.4-10.4) fL Immature Gran % (Auto) 0.6 % Neut % (Auto) 55.9 % Lymph % (Auto) 25.3 % [place] % (Auto) 13.4 % Eos % (Auto) 3.8 % Baso % (Auto) 1.0 % Immature Gran # (Auto) 0.03 H (0.00-0.02) K/uL Neut # (Auto) 2.80 (1.4-6.5) K/uL Lymph # (Auto) 1.27 (1.2-3.4) K/uL [place] # (Auto) 0.67 H (0.11-0.59) K/uL Eos # (Auto) 0.19 (0-0.5) K/uL Baso # (Auto) 0.05 (0-0.2) K/uL APTT 30.2 (21.0-31.0) Seconds PTT Ratio 1.1 POC Sodium (135-144) mEq/L Sodium 141 (136-145) mmol/L POC Potassium (3.3-5.0) mEq/L Potassium 4.2 (3.5-5.1) mmol/L POC Chloride (101-112) mEq/L Chloride 108 H (98-107) mmol/L Carbon Dioxide 25 (21-32) mmol/L POC Total CO2 (24-31) mEq/l Anion Gap 8.0 (3-11) POC Anion Gap (16-25) mmol/L POC BUN (7-18) mg/dl BUN 21 H (7-18) mg/dl Creatinine 1.56 H D (0.6-1.4) mg/dl POC Creatinine (0.6-1.3) mg/dl Est Cr Clr Drug Dosing 57.0 ml/min Est GFR ( Amer) 54.8 Est GFR (Non-Af Amer) 47.2 BUN/Creatinine Ratio 13.2 (10-20) Glucose 111 H (70-99) mg/dl POC Glucose (other) (70-99) mg/dl Calcium 9.7 (8.5-10.1) mg/dl POC Ioniz Calcium [place] (1.12-1.32) mmol/l Total Bilirubin 0.6 (0.2-1) mg/dl AST 21 (15-37) U/L ALT 37 (12-78) U/L Alkaline Phosphatase 77 (45-117) U/L POC Troponin I (0-0.045) ng/ml Troponin I < 0.015 (0-0.045) ng/ml NT-Pro-B Natriuret Pep 593 (0-900) pg/ml Total Protein 7.7 (6.4-8.2) gm/dl Albumin 4.0 (3.4-5.0) gm/dl Globulin 3.7 (2.5-4.0) gm/dl Albumin/Globulin Ratio 1.1 (0.9-2) Lipase 120 (73-393) U/L 03/11/19 03/11/19 Range/Units 22:24 22:27 WBC (4.8-10.8) K/uL RBC (4.7-6.1) M/uL Hgb (14.0-18.0) g/dL POC Hgb 13.6 L (14.0-18.0) g/dl Hct (42-52) % POC Hct 40 L (42-52) % MCV (80-100) fL MCH (25-34) pg MCHC (32-36) g/dL RDW Std Deviation (36.4-46.3) fL RDW Coeff of Avril (11.5-14.5) % Plt Count (130-400) K/uL MPV (7.4-10.4) fL Immature Gran % (Auto) % Neut % (Auto) % Lymph % (Auto) % [place] % (Auto) % Eos % (Auto) % Baso % (Auto) % Immature Gran # (Auto) (0.00-0.02) K/uL Neut # (Auto) (1.4-6.5) K/uL Lymph # (Auto) (1.2-3.4) K/uL [place] # (Auto) (0.11-0.59) K/uL Eos # (Auto) (0-0.5) K/uL Baso # (Auto) (0-0.2) K/uL APTT (21.0-31.0) Seconds PTT Ratio POC Sodium 140 (135-144) mEq/L Sodium (136-145) mmol/L POC Potassium 4.1 (3.3-5.0) mEq/L Potassium (3.5-5.1) mmol/L POC Chloride 105 (101-112) mEq/L Chloride (98-107) mmol/L Carbon Dioxide (21-32) mmol/L POC Total CO2 24 (24-31) mEq/l Anion Gap (3-11) POC Anion Gap 16.0 (16-25) mmol/L POC BUN 21 H (7-18) mg/dl BUN (7-18) mg/dl Creatinine (0.6-1.4) mg/dl POC Creatinine 1.6 H (0.6-1.3) mg/dl Est Cr Clr Drug Dosing ml/min Est GFR ( Amer) Est GFR (Non-Af Amer) BUN/Creatinine Ratio (10-20) Glucose (70-99) mg/dl POC Glucose (other) 110 H (70-99) mg/dl Calcium (8.5-10.1) mg/dl POC Ioniz Calcium [place] 1.21 (1.12-1.32) mmol/l Total Bilirubin (0.2-1) mg/dl AST (15-37) U/L ALT (12-78) U/L Alkaline Phosphatase (45-117) U/L POC Troponin I < 0.03 (0-0.045) ng/ml Troponin I (0-0.045) ng/ml NT-Pro-B Natriuret Pep (0-900) pg/ml Total Protein (6.4-8.2) gm/dl Albumin (3.4-5.0) gm/dl Globulin (2.5-4.0) gm/dl Albumin/Globulin Ratio (0.9-2) Lipase (73-393) U/L Imaging Data Attestation: I personally reviewed and interpreted this imaging study as follows: MDM Narrative Prior records/ancillary studies reviewed. Triage Nursing notes reviewed. Additional history obtained from family. The patient's history was concerning for chest pain. Differential diagnosis: Etiologies such as cardiac ischemia, aortic dissection, pulmonary embolism, pneumonia, pneumothorax, musculoskeletal, infections, pericarditis, myocarditis, esophageal rupture, gastrointestinal, as well as others were entertained. Physical examination: As above. ER treatment provided: Nitroglycerin On reassessment the patient felt better. Diagnostic interpretation by me: The electrocardiogram was irregularly irregular with a ventricular rate of 69, no acute ST-T wave changes, poor baseline, impression atrial flutter interpreted by myself. Repeat EKG still shows atrial flutter per my interpretation EKG ordered for chest pain The labs revealed negative troponin. Slightly elevated creatinine Mild anemia Imaging studies: XR chest 1V portable CLINICAL HISTORY: 63 years-old Male presenting with Chest Pain. TECHNIQUE: Portable upright AP view of the chest was obtained. COMPARISON: 03/08/2019. FINDINGS: Atherosclerosis of the aortic arch. Cardiac silhouette mildly enlarged. No focal opacity. No large effusion or pneumothorax. Cervical fusion hardware. Degenerative changes of the spine. Upper abdomen normal. IMPRESSION: 1. Mild cardiomegaly. No other convincing evidence of acute cardiopulmonary disease. Electronically signed by: Stephen Womack M.D. 03/11/2019 10:28 PM HEART SCORE: Hx: high/mod/low suspicion: 1 ECG: ST depression/nonspecific changes/normal: 0 Age: Greater than 65/45-64/less than 45: 1 Risk factors: (Hypertension, hyperlipidemia, diabetes, coronary disease, tobacco use, cocaine use): 1 Troponin: Greater than 2 times normal limits/1-2 times normal limits/normal: 0 Total: 3 Consultation: A consultation was placed with the hospitalist, Dr. Marino. The case was discussed and diagnostics were reviewed. The patient was evaluated in the ER for further treatment. Exam and history seem consistent with chest pain with concerns for cardiac in etiology. Patient is in a flutter. This is new for him. It was rate controlled. He is on Eliquis. Patient was pain-free after nitroglycerin and paste was applied. Repeat EKG is unchanged. Patient is agreeable to treatment plan of admission. Medicine was consulted. By the evaluation outlined above emergent etiologies such as aortic dissection, pulmonary embolism, pneumonia, pneumothorax, infections, pericarditis, myocarditis, gastrointestinal, as well as others were deemed relatively unlikely. The pt informed about the findings as listed above. All questions were answered and pleased with the treatment. Case reviewed with my attending The chart was completed utilizing [email or web address] Speech voice recognition software. Grammatical errors, random word insertions, pronoun errors, and incomplete sentences are an occassional consequence of this system due to software limitations, ambient noise, and hardware issues. Any formal questions or con cerns about the content, text, or information contained within the body of this dictation should be directly addressed to the physician customer service assistant for clarification. Impression & Plan Atypical chest pain, Atrial fibrillation/flutter Discharge Plan Visit Data Chief Complaint: Chest Pain Stated Complaint: CHEST PAIN, SOB- CARDIAC HX ED Provider: Brandon Lai ED Midlevel Provider: Jana Henning Discharge Problem: Atypical chest pain, Atrial fibrillation/flutter Patient Disposition: Admitted As Inpatient Condition: Fair Forms Stand Alone Forms: Call Back Authorization, My [facility] Prescriptions Prescriptions: No Action polyethylene glycol 3350 [Miralax] 17 gram Powder In Packet 17 g PO DAILY RF: 0 fenofibrate micronized 134 mg Capsule 134 mg PO DAILY RF: 0 methotrexate sodium 2.5 mg Tablet 12.5 mg PO WK RF: 0 tamsulosin [Flomax] 0.4 mg Capsule 0.4 mg PO DAILY RF: 0 lansoprazole [Prevacid] 30 mg Capsule,Delayed Release(Dr/Ec) 30 mg PO DAILY RF: 0 rosuvastatin [Crestor] 10 mg Tablet 10 mg PO DAILY RF: 0 Eliquis 5 mg Tablet 5 mg PO BID RF: 0 Referrals Referrals: Vikki Turcios PA-C [Primary Care Provider] -
[2019-03-12 00:01] LABS: Partial Thromboplastin Ratio 1.1; Partial Thromboplastin Time 30.2 Seconds (21.0-31.0)
--- NOTE | 2019-03-12 00:20 | History & Physical Report ---
Date of Service March 12, 2019 Assessment & Plan (1) Chest pain: Relieved by nitroglycerin Possible ACS chronic diastolic heart failure (EF 55 to 60%, recent VIRGIE 2018), patient possibly in the dry side with ARF possibly related to NSAID intake A. fib, rate controlled on Eliquis history symptomatic bradycardia probable SSS given hx AF, stable off beta- bree Rx hypertension, stable hyperlipidemia, statin Rx chronic anemia hemoglobin better than baseline possibly secondary to hemoc oncentration past tobacco abuse OBS PCU Aspirin for CAD prevention until ACS ruled out Follow troponin Cardiology consult RE chest pain Baseline UA, monitor creatinine response to IV fluids Patient counseled about adverse effects of NSAIDs on blood pressure and kidney function. DVT prophylaxis. IV heparin while Eliquis on hold in anticipation of procedure Full code History of Present Illness Chief Complaint: Chest pain, S OB Primary Care Provider: Vikki Turcios PA-C History obtained from patient, family, and records. Medical history significant for chronic diastolic heart failure (EF 55 to 60%, recent VIRGIE 2018), PA. fib on Eliquis, history symptomatic bradycardia, hypertension, hyperlipidemia, GERD, chronic anemia baseline hemoglobin of 12, past tobacco abuse, history psoriasis on methotrexate. Recent confinement March 08March 10, 2019 for acute CHF post VIRGIE cardioversion. Found to have symptomatic bradycardia during confinement. Home beta-bree rx stopped. As per Cardiology note, PPM placement to be done for long-term management. Plan evaluation for ischemic heart disease with cardiac CT in the next 1 to 2 weeks as per note. At home, achy headache symptoms with some relief from intermittent OTC NSAID intake. At home yesterday afternoon, patient noted achy substernal/epigastric discomfort different from heartburn with some shortness of breath. No cough symptoms. Some relief with nitroglycerin administration at the ER. Medical History as above Surgical History : Back surgery Family History : Heart disease, dementia Personal/Social history : Past tobacco abuse, no EtOH intake, window replacement work Allergies Allergy/AdvReac Type Severity Reaction Status Date / Time acetaminophen Allergy Hives Verified 03/11/19 22:41 [From Darvocet-N] hydrocodone [From Vicodin] Allergy Hives Verified 03/11/19 22:41 propoxyphene Allergy Hives Verified 03/11/19 22:41 [From Darvocet-N] atorvastatin [From Lipitor] AdvReac Muscle Pain Verified 03/11/19 22:41 sulfamethoxazole AdvReac Chills/mallory Verified 03/11/19 22:41 [From Bactrim] rs trimethoprim [From Bactrim] AdvReac Chills/mallory Verified 03/11/19 22:42 rs Home Medications Home Medications Medication Instructions Recorded Confirmed Type Eliquis 5 mg PO BID 03/06/19 03/11/19 History fenofibrate micronized 134 mg PO DAILY 03/06/19 03/11/19 History lansoprazole [Prevacid] 30 mg PO DAILY 03/06/19 03/11/19 History methotrexate sodium 12.5 mg PO WK 03/06/19 03/11/19 History polyethylene glycol 3350 [Miralax] 17 g PO DAILY 03/06/19 03/11/19 History rosuvastatin [Crestor] 10 mg PO DAILY 03/06/19 03/11/19 History tamsulosin [Flomax] 0.4 mg PO DAILY 03/06/19 03/11/19 History Past Med/Surg History Medical History Psoriasis (Chronic) Esophageal reflux (Chronic) Mixed hyperlipidemia (Chronic) HTN (hypertension) (Chronic) Spinal stenosis (Chronic) Afib With SVR Surgical History H/O cervical spine surgery H/O lumbosacral spine surgery 2003, 2009 Family History Brother Myocardial infarction, Onset Age: 40 Brother Sudden , Onset Age: 80 Believed to be cardiac Father Dementia Mother Myocardial infarction, Onset Age: 70 Social History Preferred Language: Spanish Communication Ability: Effective Mold Finisher Required: No Beliefs That Will Affect Care: None marital status: Current Living Situation: Spouse current occupational status: employed Other Information That Helps Us Care for You: No Feels Safe at Home: Yes Safety Concerns: Feels Safe At This Time Smoking Status: Former smoker Tobacco Type: cigarettes ; Second Hand Exposure: No ; Hx Alcohol Use: No Hx Substance Use: No Review of Systems Review of Systems: As per HPI, all 10 systems reviewed, all other ROS negative Physical Exam Physical Exam: GENERAL: Comfortable, pleasant, slightly anxious, no respiratory distress SKIN: Pallor , warm HEENT: Bespectacled, pale palpebral conjunctivae, no ptosis, dry buccal mucosa NECK : Supple, no tenderness CHEST : CTA, no tenderness HEART : Irregular , systolic murmur ABDOMEN: Some distention, nontender EXTREMITIES : No LE swelling/tenderness, no other conspicuous deformities noted NEUROLOGIC : Coherent, no facial asymmetry, no other gross focality Results & Data Vital Signs (Past 12 Hours) Vital Signs Temp Pulse Pulse Resp BP BP Pulse Ox 03/11/19 23:16 65 16 121/66 95 03/11/19 23:00 69 21 121/66 93 03/11/19 22:34 93 03/11/19 22:33 67 18 130/75 92 03/11/19 21:54 36.5 C 76 16 124/79 95 Laboratory Results Chest x-ray showed Mild cardiomegaly EKG as per my interpretation : Rate 90, A. fib, incomplete right bundle branch block, no ischemia CT head initial read no intracranial hemorrhage, mass-effect, or acute infarct. Midline ventricular volume loss, atrophy. Diagnostic Findings Laboratory Results WBC 5.01 K/uL (4.8-10.8) 03/11/19 22:18 RBC 4.69 M/uL (4.7-6.1) L 03/11/19 22:18 Hgb 13.9 g/dL (14.0-18.0) L 03/11/19 22:18 POC Hgb 13.6 g/dl (14.0-18.0) L 03/11/19 22:27 Hct 40.2 % (42-52) L 03/11/19 22:18 POC Hct 40 % (42-52) L 03/11/19 22:27 MCV 85.7 fL (80-100) 03/11/19 22:18 MCH 29.6 pg (25-34) 03/11/19 22:18 MCHC 34.6 g/dL (32-36) 03/11/19 22:18 RDW Std Deviation 42.0 fL (36.4-46.3) 03/11/19 22:18 RDW Coeff of Avril 13.6 % (11.5-14.5) 03/11/19 22:18 Plt Count 245 K/uL (130-400) 03/11/19 22:18 MPV 9.3 fL (7.4-10.4) 03/11/19 22:18 Immature Gran % (Auto) 0.6 % 03/11/19 22:18 Neut % (Auto) 55.9 % 03/11/19 22:18 Lymph % (Auto) 25.3 % 03/11/19 22:18 [place] % (Auto) 13.4 % 03/11/19 22:18 Eos % (Auto) 3.8 % 03/11/19 22:18 Baso % (Auto) 1.0 % 03/11/19 22:18 Immature Gran # (Auto) 0.03 K/uL (0.00-0.02) H 03/11/19 22:18 Neut # (Auto) 2.80 K/uL (1.4-6.5) 03/11/19 22:18 Lymph # (Auto) 1.27 K/uL (1.2-3.4) 03/11/19 22:18 [place] # (Auto) 0.67 K/uL (0.11-0.59) H 03/11/19 22:18 Eos # (Auto) 0.19 K/uL (0-0.5) 03/11/19 22:18 Baso # (Auto) 0.05 K/uL (0-0.2) 03/11/19 22:18 APTT 30.2 Seconds (21.0-31.0) 03/11/19 22:18 PTT Ratio 1.1 03/11/19 22:18 POC Sodium 140 mEq/L (135-144) 03/11/19 22:27 Sodium 141 mmol/L (136-145) 03/11/19 22:18 POC Potassium 4.1 mEq/L (3.3-5.0) 03/11/19 22:27 Potassium 4.2 mmol/L (3.5-5.1) 03/11/19 22:18 POC Chloride 105 mEq/L (101-112) 03/11/19 22:27 Chloride 108 mmol/L (98-107) H 03/11/19 22:18 Carbon Dioxide 25 mmol/L (21-32) 03/11/19 22:18 POC Total CO2 24 mEq/l (24-31) 03/11/19 22:27 Anion Gap 8.0 (3-11) 03/11/19 22:18 POC Anion Gap 16.0 mmol/L (16-25) 03/11/19 22:27 POC BUN 21 mg/dl (7-18) H 03/11/19 22:27 BUN 21 mg/dl (7-18) H 03/11/19 22:18 Creatinine 1.56 mg/dl (0.6-1.4) H D 03/11/19 22:18 POC Creatinine 1.6 mg/dl (0.6-1.3) H 03/11/19 22:27 Est Cr Clr Drug Dosing 57.0 ml/min 03/11/19 22:18 Est GFR ( Amer) 54.8 03/11/19 22:18 Est GFR (Non-Af Amer) 47.2 03/11/19 22:18 BUN/Creatinine Ratio 13.2 (10-20) 03/11/19 22:18 Glucose 111 mg/dl (70-99) H 03/11/19 22:18 POC Glucose (other) 110 mg/dl (70-99) H 03/11/19 22:27 Calcium 9.7 mg/dl (8.5-10.1) 03/11/19 22:18 POC Ioniz Calcium Oksana 1.21 mmol/l (1.12-1.32) 03/11/19 22:27 Total Bilirubin 0.6 mg/dl (0.2-1) 03/11/19 22:18 AST 21 U/L (15-37) 03/11/19 22:18 ALT 37 U/L (12-78) 03/11/19 22:18 Alkaline Phosphatase 77 U/L (45-117) 03/11/19 22:18 POC Troponin I < 0.03 ng/ml (0-0.045) 03/11/19 22:24 Troponin I < 0.015 ng/ml (0-0.045) 03/11/19 22:18 NT-Pro-B Natriuret Pep 593 pg/ml (0-900) 03/11/19 22:18 Total Protein 7.7 gm/dl (6.4-8.2) 03/11/19 22:18 Albumin 4.0 gm/dl (3.4-5.0) 03/11/19 22:18 Globulin 3.7 gm/dl (2.5-4.0) 03/11/19 22:18 Albumin/Globulin Ratio 1.1 (0.9-2) 03/11/19 22:18 Lipase 120 U/L (73-393) 03/11/19 22:18
[2019-03-12] MEDS ORDERED: NITROGLYCERIN SL 0.4 MG/TAB TAB SL PRN (01:03)
[2019-03-12] MEDS ORDERED: ASPIRIN 325 MG ECTAB PO STA (01:21)
[2019-03-12] MEDS ORDERED: ASPIRIN 81 MG ECTAB PO ONE (01:27)
[2019-03-12 01:52] LABS: Appearance Urine Turbid (Clear); Bacteria Urine Automated Negative (Negative); Bilirubin Urine Negative (Negative); Blood Urine Negative (Negative); Cast Urine Automated 0 /lpf (0-5); Color Urine Yellow; Glucose Urine UA Negative (Negative); Ketones Urine Negative (Negative); Leukocyte Esterase Urine Negative (Negative); Nitrite Urine Negative (Negative); Protein Urine Negative (Negative); Specific Gravity Urine 1.021 (1.000-1.030); Urobilinogen Urine Negative (Negative); pH Urine 7.5 (4.5-7.5)
[2019-03-12] MEDS ORDERED: LORazepam 0.25 MG/0.5 ML VIAL IV PRN (02:25)
[2019-03-12] MEDS ORDERED: HYDROmorphone INJ 0.5 MG/0.5 ML SYR IV PRN (02:25)
[2019-03-12] MEDS: SODIUM CHLORIDE 0.45 % 1,000 ML IV SCH ×2 (02:45→14:44)
[2019-03-12] MEDS: HEPARIN SODIUM/DEXTROSE 25,000 UNITS/500 ML BAG IV SCH ×2 (02:54→19:23)
[2019-03-12 04:07] LABS: Basophils # (auto) 0.02 K/uL (0-0.2); Basophils % (auto) 0.4 %; Eosinophils # (auto) 0.17 K/uL (0-0.5); Eosinophils % (auto) 3.8 %; Hematocrit (blood only) 39.8 % (42-52); Hemoglobin 13.6 g/dL (14.0-18.0); Immature Granulocytes # (auto) 0.03 K/uL (0.00-0.02); Immature Granulocytes % (auto) 0.7 %; Lymphocytes # (auto) 1.05 K/uL (1.2-3.4); Lymphocytes % (auto) 23.3 %; Mean Corpuscular Hgb Conc 34.2 g/dL (32-36); Mean Corpuscular Volume 85.6 fL (80-100); Mean Platelet Volume 8.9 fL (7.4-10.4); Monocytes # (auto) 0.62 K/uL (0.11-0.59); Monocytes % (auto) 13.7 %; Neutrophils # (auto) 2.62 K/uL (1.4-6.5); Neutrophils % (auto) 58.1 %; Platelet Count 229 K/uL (130-400); RDW Coefficient of Variation 13.5 % (11.5-14.5); RDW Standard Deviation 41.9 fL (36.4-46.3); Red Blood Count 4.65 M/uL (4.7-6.1); White Blood Count 4.51 K/uL (4.8-10.8)
[2019-03-12 04:24] LABS: BUN Creatinine Ratio 18.1 (10-20); Blood Urea Nitrogen 22 mg/dl (7-18); Calcium 8.7 mg/dl (8.5-10.1); Carbon Dioxide 26 mmol/L (21-32); Chloride 107 mmol/L (98-107); Creatinine Clr Calc Pharmacy 71.7 ml/min; Est GFR (African American) 72.3; Est GFR (Non-African American) 62.4; Glucose 108 mg/dl (70-99); Potassium 3.9 mmol/L (3.5-5.1); Sodium 139 mmol/L (136-145)
[2019-03-12 04:29] LABS: Troponin I < 0.015 ng/ml (0-0.045)
[2019-03-12] MEDS ORDERED: Heparin IV Standard *NO* Bolus ONE (05:00)
--- NOTE | 2019-03-12 07:07 | CT Scan Report ---
HEAD CT NONCONTRAST CT DOSE: 537.48 mGy.cm HISTORY: Headache, eliquis use TECHNIQUE: Multiaxial CT images of the head were performed without the use of intravenous contrast. A utomated exposure control was utilized for this study. A dose lowering technique was utilized adheri ng to the principles of ALARA. Comparison: None. Findings: The paranasal sinuses and mastoid air cells are clear. The calvarium and skull base are int act. The ventricles and sulci are within normal limits. There is no mass, hematoma, midline shift, or acute infarct. Impression: No acute intracranial abnormality. Electronically signed by: Uriel Bower M.D. 03/12/2019 7:06 AM
--- NOTE | 2019-03-12 08:41 | Cardiology Consultation ---
Date of Consultation March 12, 2019 Assessment & Plan (1) Tachy-yi syndrome: Patient with recurrent atrial fibrillation, variable ventricular rates, ranging in the low 30's to 150's. Was not able to tolerate beta bree due to symptomatic bradycarida. In order to treat symptomatic atrial fibrillation, recommend PPM implantation. Discussed case with EP, Dr. Mccallum who is known to him. All in agreement for planned pacemaker procedure tomorrow, 03/13. He will be NPO after midnight Hold Eliquis Continue IV heparin today. Stop at midnight. (2) Atrial fibrillation/flutter: Recurrent symptomatic atrial fibrillation. PPM tomorrow Then resume beta bree vs start antiarrhythmic Eliquis on hold IV heparin today (3) Atypical chest pain: Chest pain atypical for cardiac etiology. However he did have equivocal outpatient stress and risk factors for CAD Likely needs ischemic work up as well He is scheduled for outpatient cardiac CT next week to evaluate for obstructive disease. If he has recurrent symptoms during hospitalization, could consider cath as well. For now, continue ASA, statin. Beta bree on hold due to tachybrady. (4) Diastolic heart failure: Patient recently treated for acute diastolic HF Upon presentation to ER, mild renal insufficiency noted since receiving recent IV diuretic therapy Appears euvolemic on exam. No indication for diuretics at this time. Supervising Physician Co-Signing Physician Notes Patient seen and examined with Mita Loera PA-C. Agree with findings and assessment as above. States that he's felt well today without recurrence of chest pain but has not ambulated. Irregularly irregular on exam. Lungs CTA B/L. Tachybrady syndrome with plan for PPM placement tomorrow. Has not received Eliquis since admission, will stop heparin gtt at midnight tonight. NPO after midnight. Will reasses symptoms after pacer implant but may require cardiac cath prior to discharge if chest discomfort persists. Pt states that he is in agreement with plan. History of Present Illness Reason for Consultation: Atrial fibrillation; Tachybrady; Chest pain Requesting Physician: Dr. Marino Attending Physician: Minerva Paula DO History of Present Illness Patient is a 63 year old male, known to [facility], following with Dr. Mccallum as an outpatient for symptomatic atrial fibrillation. He underwent elective VIRGIE/Cardioversion on 03/06 for symptomatic atrial fibrillation, discharged on metoprolol 50 mg daily and Eliquis. Over the next few days patient developed worsening SOB, came to ER on 03/08 for complaints of worsening SOB. Found to be have marked bradycardia and acute diastolic HF. Treated with IV Lasix. Followed by Dr. Cruz and Dr. Rudd. Metoprolol held. Possible future pacemaker discussed without overt indications to proceed during hospitalization. Symptoms improved with diuresis. He was scheduled for cardiac CT for ischemic workup as an outpatient due to intermittent chest pain/dyspnea and equivocal stress testing. Patient was discharged on Monday feeling well. On Monday afternoon patient developed worsening dyspnea with exertion and recurrent epigastric pressure. Symptoms waxed/waned yesterday while at a picnic and he decided to come back to ER for evaluation. In ER he was found to have recurrent atrial fibrillation with a controlled ventricular response on EKG. Cardiac enzymes x2 since admission. He was given sublingual nitro without significant improvement. He describes his discomfort as epigastric pressure But feels this is different than his typical GERD-like symptoms. No change with exertion. Symptoms occasionally radiate to his back. Symptoms are worse with sitting upright and improve upon laying supine. He feels he has difficulty taking a deep breath. No cough. No sudden weight gain, orthopnea, PND, lower extremity edema. Eliquis held on admission. Started on IV heparin. Time of consult, patient resting comfortably in bed. He reports mild epigastric pressure but improved since admission. He admits to ongoing shortness of breath with exertion. He denies dizziness or lightheadedness. No orthopnea, PND, lower extremity edema currently. Telemetry reveals atrial fibrillation with variable ventricular rates ranging in the low 30s with several pauses, longest measuring 2.6-second pause to ventricular rates in the to 130-150s with minimal exertion. Allergies Allergy/AdvReac Type Severity Reaction Status Date / Time acetaminophen Allergy Hives Verified 03/11/19 22:41 [From Darvocet-N] hydrocodone [From Vicodin] Allergy Hives Verified 03/11/19 22:41 propoxyphene Allergy Hives Verified 03/11/19 22:41 [From Darvocet-N] atorvastatin [From Lipitor] AdvReac Muscle Pain Verified 03/11/19 22:41 sulfamethoxazole AdvReac Chills/mallory Verified 03/11/19 22:41 [From Bactrim] rs trimethoprim [From Bactrim] AdvReac Chills/mallory Verified 03/11/19 22:42 rs Home Medications Home Medications Medication Instructions Recorded Confirmed Type Eliquis 5 mg PO BID 03/06/19 03/11/19 History fenofibrate micronized 134 mg PO DAILY 03/06/19 03/11/19 History lansoprazole [Prevacid] 30 mg PO DAILY 03/06/19 03/11/19 History methotrexate sodium 12.5 mg PO WK 03/06/19 03/11/19 History polyethylene glycol 3350 [Miralax] 17 g PO DAILY 03/06/19 03/11/19 History rosuvastatin [Crestor] 10 mg PO DAILY 03/06/19 03/11/19 History tamsulosin [Flomax] 0.4 mg PO DAILY 03/06/19 03/11/19 History Patient History Medical History Psoriasis (Chronic) Esophageal reflux (Chronic) Mixed hyperlipidemia (Chronic) HTN (hypertension) (Chronic) Spinal stenosis (Chronic) Afib With SVR Surgical History H/O cervical spine surgery H/O lumbosacral spine surgery 2003, 2009 Family History Brother Myocardial infarction, Onset Age: 40 Brother Sudden , Onset Age: 80 Believed to be cardiac Father Dementia Mother Myocardial infarction, Onset Age: 70 Social History Preferred Language: Ukrainian Communication Ability: Effective Network Diagnostic Support Specialist Required: No Beliefs That Will Affect Care: None marital status: Current Living Situation: Spouse current occupational status: employed Other Information That Helps Us Care for You: No Feels Safe at Home: Yes Safety Concerns: Feels Safe At This Time Smoking Status: Former smoker Tobacco Type: cigarettes ; Second Hand Exposure: No ; Hx Alcohol Use: No Hx Substance Use: No Physical Exam Constitutional: WD/WN, vitals as above no acute distress Eyes: PERRL, conjunctivae normal, anicteric sclerae Respiratory: normal respiratory effort, lungs clear to auscultation Cardiovascular: Rate/Rhythm: + irregularly irregular Heart Sounds: no murmur Vessels: no JVD Extremities: no edema Gastrointestinal (Abdomen): normal bowel sounds, soft, nontender, no hepatosplenomegaly Musculoskeletal: no cyanosis or clubbing, extremities motor strength 5/5 Psychiatric: A+Ox3, euthymic affect Results & Data Vital Signs (Past 12 Hours) Vital Signs Temp Pulse Pulse Resp BP BP Pulse Ox 03/12/19 07:29 36.5 C 60 18 114/69 95 03/12/19 02:05 36.4 C L 64 18 118/74 98 03/12/19 01:30 67 20 121/80 95 03/12/19 00:41 64 16 110/73 94 03/12/19 00:24 73 20 123/89 96 03/11/19 23:16 65 16 121/66 95 03/11/19 23:00 69 21 121/66 93 03/11/19 22:34 93 03/11/19 22:33 67 18 130/75 92 03/11/19 21:54 36.5 C 76 16 124/79 95 Laboratory Results 03/12/19 03/12/19 03/12/19 Range/Units 03:53 03:53 01:40 WBC 4.51 L (4.8-10.8) K/uL RBC 4.65 L (4.7-6.1) M/uL Hgb 13.6 L (14.0-18.0) g/dL POC Hgb (14.0-18.0) g/dl Hct 39.8 L (42-52) % POC Hct (42-52) % MCV 85.6 (80-100) fL MCH 29.2 (25-34) pg MCHC 34.2 (32-36) g/dL RDW Std Deviation 41.9 (36.4-46.3) fL RDW Coeff of Avril 13.5 (11.5-14.5) % Plt Count 229 (130-400) K/uL MPV 8.9 (7.4-10.4) fL Immature Gran % (Auto) 0.7 % Neut % (Auto) 58.1 % Lymph % (Auto) 23.3 % Leon % (Auto) 13.7 % Eos % (Auto) 3.8 % Baso % (Auto) 0.4 % Immature Gran # (Auto) 0.03 H (0.00-0.02) K/uL Neut # (Auto) 2.62 (1.4-6.5) K/uL Lymph # (Auto) 1.05 L (1.2-3.4) K/uL Leon # (Auto) 0.62 H (0.11-0.59) K/uL Eos # (Auto) 0.17 (0-0.5) K/uL Baso # (Auto) 0.02 (0-0.2) K/uL APTT (21.0-31.0) Seconds PTT Ratio POC Sodium (135-144) mEq/L Sodium 139 (136-145) mmol/L POC Potassium (3.3-5.0) mEq/L Potassium 3.9 (3.5-5.1) mmol/L POC Chloride (101-112) mEq/L Chloride 107 (98-107) mmol/L Carbon Dioxide 26 (21-32) mmol/L POC Total CO2 (24-31) mEq/l Anion Gap 6.0 (3-11) POC Anion Gap (16-25) mmol/L POC BUN (7-18) mg/dl BUN 22 H (7-18) mg/dl Creatinine 1.24 D (0.6-1.4) mg/dl POC Creatinine (0.6-1.3) mg/dl Est Cr Clr Drug Dosing 71.7 ml/min Est GFR ( Amer) 72.3 Est GFR (Non-Af Amer) 62.4 BUN/Creatinine Ratio 18.1 (10-20) Glucose 108 H (70-99) mg/dl POC Glucose (other) (70-99) mg/dl Calcium 8.7 (8.5-10.1) mg/dl POC Ioniz Calcium Oksana (1.12-1.32) mmol/l Total Bilirubin (0.2-1) mg/dl AST (15-37) U/L ALT (12-78) U/L Alkaline Phosphatase (45-117) U/L POC Troponin I (0-0.045) ng/ml Troponin I < 0.015 (0-0.045) ng/ml NT-Pro-B Natriuret Pep (0-900) pg/ml Total Protein (6.4-8.2) gm/dl Albumin (3.4-5.0) gm/dl Globulin (2.5-4.0) gm/dl Albumin/Globulin Ratio (0.9-2) Lipase (73-393) U/L Urine Color Yellow Urine Appearance Turbid A (Clear) Urine pH 7.5 (4.5-7.5) Ur Specific [place] 1.021 (1.000-1.030) Urine Protein Negative (Negative) Urine Glucose (UA) Negative (Negative) Urine Ketones Negative (Negative) Urine Blood Negative (Negative) Urine Nitrite Negative (Negative) Urine Bilirubin Negative (Negative) Urine Urobilinogen Negative (Negative) Ur Leukocyte Esterase Negative (Negative) Urine WBC (Auto) 1-5 (0-5) /hpf Urine RBC (Auto) 5-10 H (0-4) /hpf U Hyaline Cast (Auto) 0 (0-5) /lpf U Epithel Cells (Auto) 5-10 H (0-5) /lpf Urine Bacteria (Auto) Negative (Negative) 03/11/19 03/11/19 03/11/19 Range/Units 22:27 22:24 22:18 WBC (4.8-10.8) K/uL RBC (4.7-6.1) M/uL Hgb (14.0-18.0) g/dL POC Hgb 13.6 L (14.0-18.0) g/dl Hct (42-52) % POC Hct 40 L (42-52) % MCV (80-100) fL MCH (25-34) pg MCHC (32-36) g/dL RDW Std Deviation (36.4-46.3) fL RDW Coeff of Avril (11.5-14.5) % Plt Count (130-400) K/uL MPV (7.4-10.4) fL Immature Gran % (Auto) % Neut % (Auto) % Lymph % (Auto) % Leon % (Auto) % Eos % (Auto) % Baso % (Auto) % Immature Gran # (Auto) (0.00-0.02) K/uL Neut # (Auto) (1.4-6.5) K/uL Lymph # (Auto) (1.2-3.4) K/uL Leon # (Auto) (0.11-0.59) K/uL Eos # (Auto) (0-0.5) K/uL Baso # (Auto) (0-0.2) K/uL APTT 30.2 (21.0-31.0) Seconds PTT Ratio 1.1 POC Sodium 140 (135-144) mEq/L Sodium (136-145) mmol/L POC Potassium 4.1 (3.3-5.0) mEq/L Potassium (3.5-5.1) mmol/L POC Chloride 105 (101-112) mEq/L Chloride (98-107) mmol/L Carbon Dioxide (21-32) mmol/L POC Total CO2 24 (24-31) mEq/l Anion Gap (3-11) POC Anion Gap 16.0 (16-25) mmol/L POC BUN 21 H (7-18) mg/dl BUN (7-18) mg/dl Creatinine (0.6-1.4) mg/dl POC Creatinine 1.6 H (0.6-1.3) mg/dl Est Cr Clr Drug Dosing ml/min Est GFR ( Amer) Est GFR (Non-Af Amer) BUN/Creatinine Ratio (10-20) Glucose (70-99) mg/dl POC Glucose (other) 110 H (70-99) mg/dl Calcium (8.5-10.1) mg/dl POC Ioniz Calcium Oksana 1.21 (1.12-1.32) mmol/l Total Bilirubin (0.2-1) mg/dl AST (15-37) U/L ALT (12-78) U/L Alkaline Phosphatase (45-117) U/L POC Troponin I < 0.03 (0-0.045) ng/ml Troponin I (0-0.045) ng/ml NT-Pro-B Natriuret Pep (0-900) pg/ml Total Protein (6.4-8.2) gm/dl Albumin (3.4-5.0) gm/dl Globulin (2.5-4.0) gm/dl Albumin/Globulin Ratio (0.9-2) Lipase (73-393) U/L Urine Color Urine Appearance (Clear) Urine pH (4.5-7.5) Ur Specific [place] (1.000-1.030) Urine Protein (Negative) Urine Glucose (UA) (Negative) Urine Ketones (Negative) Urine Blood (Negative) Urine Nitrite (Negative) Urine Bilirubin (Negative) Urine Urobilinogen (Negative) Ur Leukocyte Esterase (Negative) Urine WBC (Auto) (0-5) /hpf Urine RBC (Auto) (0-4) /hpf U Hyaline Cast (Auto) (0-5) /lpf U Epithel Cells (Auto) (0-5) /lpf Urine Bacteria (Auto) (Negative) 03/11/19 03/11/19 Range/Units 22:18 22:18 WBC 5.01 (4.8-10.8) K/uL RBC 4.69 L (4.7-6.1) M/uL Hgb 13.9 L (14.0-18.0) g/dL POC Hgb (14.0-18.0) g/dl Hct 40.2 L (42-52) % POC Hct (42-52) % MCV 85.7 (80-100) fL MCH 29.6 (25-34) pg MCHC 34.6 (32-36) g/dL RDW Std Deviation 42.0 (36.4-46.3) fL RDW Coeff of Avril 13.6 (11.5-14.5) % Plt Count 245 (130-400) K/uL MPV 9.3 (7.4-10.4) fL Immature Gran % (Auto) 0.6 % Neut % (Auto) 55.9 % Lymph % (Auto) 25.3 % Leon % (Auto) 13.4 % Eos % (Auto) 3.8 % Baso % (Auto) 1.0 % Immature Gran # (Auto) 0.03 H (0.00-0.02) K/uL Neut # (Auto) 2.80 (1.4-6.5) K/uL Lymph # (Auto) 1.27 (1.2-3.4) K/uL Leon # (Auto) 0.67 H (0.11-0.59) K/uL Eos # (Auto) 0.19 (0-0.5) K/uL Baso # (Auto) 0.05 (0-0.2) K/uL APTT (21.0-31.0) Seconds PTT Ratio POC Sodium (135-144) mEq/L Sodium 141 (136-145) mmol/L POC Potassium (3.3-5.0) mEq/L Potassium 4.2 (3.5-5.1) mmol/L POC Chloride (101-112) mEq/L Chloride 108 H (98-107) mmol/L Carbon Dioxide 25 (21-32) mmol/L POC Total CO2 (24-31) mEq/l Anion Gap 8.0 (3-11) POC Anion Gap (16-25) mmol/L POC BUN (7-18) mg/dl BUN 21 H (7-18) mg/dl Creatinine 1.56 H D (0.6-1.4) mg/dl POC Creatinine (0.6-1.3) mg/dl Est Cr Clr Drug Dosing 57.0 ml/min Est GFR ( Amer) 54.8 Est GFR (Non-Af Amer) 47.2 BUN/Creatinine Ratio 13.2 (10-20) Glucose 111 H (70-99) mg/dl POC Glucose (other) (70-99) mg/dl Calcium 9.7 (8.5-10.1) mg/dl POC Ioniz Calcium Oksana (1.12-1.32) mmol/l Total Bilirubin 0.6 (0.2-1) mg/dl AST 21 (15-37) U/L ALT 37 (12-78) U/L Alkaline Phosphatase 77 (45-117) U/L POC Troponin I (0-0.045) ng/ml Troponin I < 0.015 (0-0.045) ng/ml NT-Pro-B Natriuret Pep 593 (0-900) pg/ml Total Protein 7.7 (6.4-8.2) gm/dl Albumin 4.0 (3.4-5.0) gm/dl Globulin 3.7 (2.5-4.0) gm/dl Albumin/Globulin Ratio 1.1 (0.9-2) Lipase 120 (73-393) U/L Urine Color Urine Appearance (Clear) Urine pH (4.5-7.5) Ur Specific [place] (1.000-1.030) Urine Protein (Negative) Urine Glucose (UA) (Negative) Urine Ketones (Negative) Urine Blood (Negative) Urine Nitrite (Negative) Urine Bilirubin (Negative) Urine Urobilinogen (Negative) Ur Leukocyte Esterase (Negative) Urine WBC (Auto) (0-5) /hpf Urine RBC (Auto) (0-4) /hpf U Hyaline Cast (Auto) (0-5) /lpf U Epithel Cells (Auto) (0-5) /lpf Urine Bacteria (Auto) (Negative) Diagnostic Findings EKG on admission: atrial fibrillation with controlled rates inferior ST/T wave abnormality VIRGIE report reviewed, dated 03/06/19: Normal LV systolic function, 65% No thrombus detected Mild MR Mild TR No pulm hypertension (1) Diastolic heart failure Heart failure chronicity: chronic Qualified Code(s): I50.32 - Chronic diastolic (congestive) heart failure
[2019-03-12 10:08] LABS: Partial Thromboplastin Ratio 2.3
[2019-03-12 10:23] LABS: Partial Thromboplastin Time 61.8 Seconds (21.0-31.0)
[2019-03-12] MEDS: TAMSULOSIN HCL 0.4 MG CAP PO SCH (11:46)
[2019-03-12] MEDS: ROSUVASTATIN CALCIUM 10 MG TAB PO SCH (11:46)
[2019-03-12] MEDS: FENOFIBRATE NANOCRYSTALLIZED 145 MG TABLET PO SCH (11:46)
[2019-03-12] MEDS: PANTOprazole 40 MG TAB PO SCH (11:47)
[2019-03-12] MEDS ORDERED: FAMOTIDINE 20 MG TAB PO ONE (12:30)
[2019-03-12] MEDS: POLYETHYLENE (MIRALAX) 17 GM PACK PO SCH (14:46)
--- NOTE | 2019-03-12 17:42 | Hospitalist Progress Note ---
Date of Service March 12, 2019 Assessment & Plan (1) Atrial fibrillation/flutter: recent VIRGIE cardioversion with subsequent stunned myocardium and subsequent acute diastolic heart failure. He was admitted for this and improved after one dose of IV Lasix. He subsequently developed symptomatic bradycardia on the metoprolol which was discontinued. He returns now with a return of chest pain and has converted back into atrial fibrillation which was a symptomatic rhythm for him, hence the VIRGIE cardioversion attempt last week. Serial trop is negative and pain was only somewhat improved with nitro. No evidence of active ischemia. Just ate so will try some pepcid, however, he will be getting a pacemaker in the morning for tachybrady syndrome and will also likely undergo a cath for ischemic workup while admitted. Defer managment to cardiology. (2) Tachy-yi syndrome: Planned for PM in am. Hold all AV srinivas blockers until after that time. (3) Chest pain: Cont supportive care with Pepcid, Morphine, Nitro as needed. (4) DVT prophylaxis: Heparin drip Full Code Dispo-uncertain at this time, cont tele monitoring. Plan for home when medically stable. Minerva Paula DO [facility] Subjective chest pain still present but it is low grade and pt declining nitro at this time. he just ate so will give some pepcid. nurse aware of the pain. trop are negative and EKG reveals he has returned to atrial fibrillation. Eliquis was stopped on admission and heparin was started. Still has shortness of breath which has not worsened since prior stay. Review of Systems Review of Systems: All systems reviewed & are unremarkable except as noted in HPI & below Physical Exam Physical Exam: CONSTITUTIONAL: WNWD, vitals as above, generally well- appearing EYES: normal conjunctivae, no scleral icterus ENT: MMM RESPIRATORY: clear to auscultation bilaterally, no crackles, rales or wheezes, normal respiratory effort CARDIOVASCULAR: irregular rate and irregular rhythm, S1 and 2 heard without murmurs, gallops or rubs, no JVD, no peripheral edema GASTROINTESTINAL: normal bowel sounds, soft, nontender, nondistended MUSCULOSKELETAL: strength 5/5 throughout, head is normocephalic and atraumatic, no chest wall TTP SKIN: warm and dry NEUROLOGIC: CN 2-12 grossly intact, no sensory deficit, normal cognition, normal speech, no tremor, no gross focal deficits. PSYCHIATRIC: alert cooperative and oriented to person, place and time. Results & Data Vital Signs (Past 12 Hours) Vital Signs Temp Pulse Resp BP Pulse Ox 03/12/19 15:35 36.4 C L 67 18 144/77 H 96 03/12/19 12:27 36.3 C L 74 18 121/82 94 03/12/19 07:29 36.5 C 60 18 114/69 95 Laboratory Results Short CBC 03/11/19 03/12/19 Range/Units 22:18 03:53 WBC 5.01 4.51 L (4.8-10.8) K/uL Hgb 13.9 L 13.6 L (14.0-18.0) g/dL Hct 40.2 L 39.8 L (42-52) % Plt Count 245 229 (130-400) K/uL BMP 03/11/19 03/12/19 22:18 03:53 Sodium 141 139 Potassium 4.2 3.9 Chloride 108 H 107 Carbon Dioxide 25 26 BUN 21 H 22 H Creatinine 1.56 H D 1.24 D Glucose 111 H 108 H Calcium 9.7 8.7 Cardiac Enzymes 03/11/19 03/12/19 Range/Units 22:18 03:53 Troponin I < 0.015 < 0.015 (0-0.045) ng/ml Liver Function 03/11/19 Range/Units 22:18 Total Bilirubin 0.6 (0.2-1) mg/dl AST 21 (15-37) U/L ALT 37 (12-78) U/L Alkaline Phosphatase 77 (45-117) U/L Albumin 4.0 (3.4-5.0) gm/dl Urine 03/12/19 Range/Units 01:40 Urine Color Yellow Urine Appearance Turbid A (Clear) Urine pH 7.5 (4.5-7.5) Ur Specific [place] 1.021 (1.000-1.030) Urine Protein Negative (Negative) Urine Glucose (UA) Negative (Negative) Medications Administered Current Inpatient Medications Acetaminophen (Tylenol) 650 mg PO Q4H PRN PRN Reason: Pain or Fever Stop: 04/11/19 02:24 Aspirin (Ecotrin Ectab) 81 mg PO QAM [facility] Stop: 04/12/19 08:59 Fenofibrate (Tricor) 145 mg PO DAILY [facility] Stop: 04/11/19 08:59 Last Admin: 03/12/19 11:46 Dose: 145 mg Documented by: Hydromorphone HCl (Dilaudid) 0.5 mg IV Q3H PRN PRN Reason: Pain Stop: 03/26/19 02:24 Lorazepam (Ativan) 0.25 mg in 0.5 mls @ 0.5 mls/min IV Q4H PRN PRN Reason: Anxiety Stop: 04/11/19 02:24 Heparin Sodium/Dextrose (Heparin Sodium/Dextrose) 25,000 units in 500 mls @ 29 mls/hr IV .[id number] [facility]; Protocol Stop: 03/13/19 00:01 Last Admin: 03/12/19 02:54 Dose: 1,450 units/hr, 29 mls/hr Documented by: Miscellaneous (Stop Order) 1 ea N/A TODAY@0001 ONE Stop: 03/13/19 00:02 Nitroglycerin (Nitrostat) 0.4 mg SL PRN PRN PRN Reason: Chest Pain Stop: 04/11/19 01:02 Pantoprazole Sodium (Protonix) 40 mg PO DAILY [facility] Stop: 04/11/19 08:59 Last Admin: 03/12/19 11:47 Dose: 40 mg Documented by: Polyethylene Glycol (Miralax Powder Packet) 17 gm PO DAILY [facility] Stop: 04/11/19 08:59 Last Admin: 03/12/19 14:46 Dose: Not Given Documented by: Rosuvastatin Calcium (Crestor) 10 mg PO DAILY [facility] Stop: 04/11/19 08:59 Last Admin: 03/12/19 11:46 Dose: 10 mg Documented by: Tamsulosin HCl (Flomax) 0.4 mg PO DAILY [facility] Stop: 04/11/19 08:59 Last Admin: 03/12/19 11:46 Dose: 0.4 mg Documented by: Tramadol HCl (Ultram) 25 mg PO Q4H PRN PRN Reason: Pain Stop: 04/11/19 01:03
[2019-03-13] MEDS: FENOFIBRATE NANOCRYSTALLIZED 145 MG TABLET PO SCH (08:31)
[2019-03-13] MEDS: ASPIRIN 81 MG ECTAB PO SCH (08:31)
[2019-03-13] MEDS: ROSUVASTATIN CALCIUM 10 MG TAB PO SCH (08:31)
[2019-03-13] MEDS: PANTOprazole 40 MG TAB PO SCH (08:31)
[2019-03-13] MEDS: TAMSULOSIN HCL 0.4 MG CAP PO SCH (08:31)
[2019-03-13] MEDS: POLYETHYLENE (MIRALAX) 17 GM PACK PO SCH (09:08)
--- NOTE | 2019-03-13 11:21 | Hospitalist Progress Note ---
Date of Service March 13, 2019 Assessment & Plan (1) Atrial fibrillation/flutter: -This is a patient with recent VIRGIE cardioversion with subsequent stunned myocardium and subsequent acute diastolic heart failure for which he was discharged after diuretic treatment and also had symptomatic bradycardia for which beta bree was discontinued. -Patient returned on this hospital stay with chest pain and in atrial fibrillation which was a symptomatic rhythm for him -as of 03/13/19, cardiology service to plan for pacemaker placement -further cardiology directions appreciated (2) Tachy-yi syndrome: -as of 03/13/19, cardiology service to plan for pacemaker placement -further cardiology directions appreciated (3) Chest pain: -no chest pain at this time -Continue supportive care with Pepcid, Morphine, Nitro as needed. (4) DVT prophylaxis: -Heparin drip has been held for now as cardiology service to plan for pacemaker placement for 03/13/19 -will appreciate cardiology directions on future anticoagulation after pacemaker placement Full Code Subjective Patient is currently NPO. awaiting pacemaker placement as per cardiology service. on telemetry, patient has been in atrial fibrillation. heart rate is controlled. no chest pain. no feeling of palpitations. no shortness of breath. is breathing on room air. no abdomen pain. no lightheadedness. no dizziness. Physical Exam Constitutional: comfortable Eyes: PERRL, conjunctivae normal, anicteric sclerae EOM intact bilaterally ENMT: external ear and nose normal, oropharynx normal Neck: trachea midline, no thyromegaly normal visual inspection Respiratory: normal respiratory effort, lungs clear to auscultation Cardiovascular: Rate/Rhythm: regular rate and + irregularly irregular Gastrointestinal (Abdomen): normal bowel sounds, soft, nontender, no hepatosplenomegaly Musculoskeletal: Head/Neck/Chest: normocephalic and head atraumatic Neurologic: PERRL, EOMI, accommodation nl, no face palsy, no dysarthria CN's II-XI intact bilaterally Psychiatric: A+Ox3, euthymic affect Results & Data Vital Signs (Past 12 Hours) Vital Signs Temp Pulse Resp BP Pulse Ox 03/13/19 06:50 36.5 C 73 16 107/72 95 03/13/19 03:26 36.4 C L 58 L 16 104/66 96
--- NOTE | 2019-03-13 11:29 | Pre Anesthesia Assessment ---
Date of Service March 13, 2019 Pre Sedation Assessment Vital Signs Temp Pulse Resp BP Pulse Ox 03/13/19 06:50 36.5 C 73 16 107/72 95 03/13/19 03:26 36.4 C L 58 L 16 104/66 96 03/12/19 22:49 36.4 C L 69 16 132/80 94 03/12/19 19:30 36.4 C L 81 18 105/78 93 03/12/19 15:35 36.4 C L 67 18 144/77 H 96 03/12/19 12:27 36.3 C L 74 18 121/82 94 Cardiovascular + bradycardic Respiratory normal respiratory effort, lungs clear to auscultation Pre-Sedation Airway Assessment Smoking Status: Former smoker Hx Sleep Apnea: No Hx Difficult Intubation: No Short, Thick Neck: No Thyromental Distance: < 3.5 Finger Breadths Oral Cavity: + WNL Mallampati Class: II ASA: ASA3 NPO Status Date of Last Intake of Fluids: 03/12/19 Date of Last Intake of Solid Food: 03/12/19 Procedure Planning Contraindications for Sedation: none Current Medications Reviewed: Yes Notes The planned sedation has been discussed with the patient. Informed Consent was obtained. I have identified the patient, determined the appropriateness of sedation and have assessed the patient immediately prior to the procedure. All medicine(s) and interventions are by my order.
--- NOTE | 2019-03-13 11:29 | History & Physical Bridge Note ---
Date of Service March 13, 2019 History & Physical Bridge Note I have examined the patient, reviewed the History & Physical and in the interval since the performance of the History & Physical I have noted the following changes of clinical significance: Pt with symptomatic irreversible Sinus bradycardia for ppm
[2019-03-13] MEDS ORDERED: BACITRACIN INJ 50,000 UNIT VIAL ONE (11:39)
[2019-03-13] MEDS ORDERED: LIDOCAINE HCL 1% 20 ML VIAL ONE (11:41)
[2019-03-13] MEDS ORDERED: BUPIVACAINE 0.25% 30 ML VIAL ONE (11:41)
[2019-03-13] MEDS ORDERED: fentaNYL citrate 100 MCG/2 ML VIAL ONE ×2 (11:53→12:36)
[2019-03-13] MEDS ORDERED: MIDAZOLAM HCL 5 MG/ML 1 ML VIAL ONE (11:53)
[2019-03-13] MEDS ORDERED: CEFAZOLIN 250 MG/ML 1 GM VIAL ONE (11:54)
--- NOTE | 2019-03-13 13:43 | Post Anesthesia Assessment ---
Date of Service March 13, 2019 Post Sedation Assessment Vital Signs Temp Pulse Resp BP Pulse Ox 03/13/19 06:50 36.5 C 73 16 107/72 95 03/13/19 03:26 36.4 C L 58 L 16 104/66 96 03/12/19 22:49 36.4 C L 69 16 132/80 94 03/12/19 19:30 36.4 C L 81 18 105/78 93 03/12/19 15:35 36.4 C L 67 18 144/77 H 96 Recovery Score Activity: Moves 4 extremities Respiration: Deep Breath/Cough Circulation: +/-20% PreAnes Value Consciousness: Fully Awake Oxygen Saturation: > 92% On Room Air Discharge Sedation Level of Care: Fast Track Phase II Post Sedation Plan On clinical assessment, the patient appears to have tolerated the sedation without complications. Patient is recovering as anticipated. Patient will continue to be monitored by nursing and may be discharged when sedation discharge criteria are met per below protocol. Upon Completions of procedure and additional 15 minutes continue every 5 minute vital signs and the P.A.R. score; then discharge to a Phase I or Fast Track to Phase II per the following guidelines: * Discharge Patient to appropriate Phase II area if PAR is 8 or greater or return to pre- procedure baseline. The post - procedure orders will be as directed. * If PAR score is less than 8 or not return to pre-procedure baseline then patient will follow Phase I monitoring till PAR is reached for Phase II. The Phase I may be done in procedure room or may call to secure a Phase I area. * If naloxone or flumazenil are used for reversal, hold in Phase I for continued monitoring from when last reversal dose was given for a minimum of 60 minutes or longer pending the nurse and/or physician discretion of patient condition before discharge to Phase II. Please call the Sedation Physician to re-evaluate and complete post-note for discharge to Phase II area. Do NOT discharge from procedure sedation or Phase 1 until post- sedation evaluation note is complete by procedure /sedation MD Sedation Discharge Instructions to be given to the patient at discharge to home.
--- NOTE | 2019-03-13 13:44 | Operative Report ---
Post Operative Report Pre & Post Diagnosis Pre: TBS Post: Same Operation Date: 03/13/19 11:00 <No data on this case meets the specified criteria> Procedure Operation Date: 03/13/19 11:00 Actual Procedures p Pacer with A/V Leads (Dual) - Damaris Mccallum DO Surgeon Damaris Mccallum DO Animal Pathologist none Estimated Blood Loss 15 Findings Consistent with Post-Op Diagnosis Specimens none Description of Procedure see official report I attest to the content of the Intraoperative Record and any orders documented therein. Any exceptions are noted below.
[2019-03-13] MEDS ORDERED: SODIUM CHLORIDE 0.9% 1000ML 500 ML IV ONE (14:52)
--- NOTE | 2019-03-13 14:53 | Operative Report ---
DATE OF OPERATION: 03/13/2019 PREOPERATIVE DIAGNOSIS: Tachybrady syndrome. POSTOPERATIVE DIAGNOSIS: Tachybrady syndrome. PROCEDURE: Dual chamber rate responsive permanent pacemaker under fluoroscopic guidance along with peripheral venogram. SURGEON: Damarsi Mccallum DO MASTER AT ARMS: None. ANESTHESIA: Monitored conscious sedation administered under my supervision by Jennifer Fuentes. Start time 12:15, end time 13:42. A total of 5 mg of Versed and 125 mcg of fentanyl. INTRAVENOUS FLUIDS: 100 mL. CONTRAST: 10 mL. URINE OUTPUT: Not applicable. ANTIBIOTICS: Two grams of Ancef. BLOOD LOSS: 20 mL. FINDINGS: See below. DRAINS: None. INDICATIONS: This is a 63-year-old gentleman with a past medical history for sinus bradycardia and incomplete right bundle branch block, formal tobacco user, snoring, hyperlipidemia, family history of coronary artery disease, gastroesophageal reflux disease, spinal stenosis, psoriasis on methotrexate once a week. He was found to have atrial fibrillation with a very slow ventricular response a week ago. He underwent VIRGIE guided cardioversion back to sinus bradycardia. Post-procedure, though 2 days later, he did have some acute diastolic heart failure from the resynchronization of AV conduction, so he was hospitalized and got some IV diuretics and his beta bree was held because he was sinus bradycardia. He was discharged to home, but then the following day returns because of chest pain and was found to be back in atrial fibrillation. Due to this, it was inevitable that we had to do the pacemaker, we were hoping to possibly do this more as an outpatient after him having a cardiac CT; however, since he is symptomatic with the tachybrady syndrome, he was recommended a pacemaker, so that we can start sotalol and try to get him back into normal rhythm. CONSENT: Consent was obtained prior to the patient going into electrophysiology lab. The patient was informed of the risks, benefits and alternative procedure. Risks include but not limited to sudden cardiac , cardiac arrhythmias, cerebrovascular accident, myocardial infarction, injury to the blood vessels, chamber of the heart, lung, bleeding, and infection. The patient understood these risks and agreed to the procedure as planned. Informed consent was obtained. DESCRIPTION OF THE PROCEDURE: The patient was brought into the electrophysiology lab in a fasting state. He was connected to continuous security monitor. A timeout was performed to ensure patient identity and procedure correctly. The patient was prepped and draped over the left infraclavicular space in normal surgical standard fashion. Monitored conscious sedation given throughout the procedure for patient's comfort level. [place] precautions were maintained throughout the procedure. A 20 mL of lidocaine, bupivacaine mixture were given in the left deltopectoral groove. Incision was made in left deltopectoral groove. Blunt dissection performed down to identify the cephalic vein; however, none could be identified, so peripheral venogram using 10 mL of contrast diluted in 10 mL of saline followed by 20 mL flush was performed. This identified the axillary vein and venous axillary vein access was obtained through a needlestick without any complications. The guidewire was inserted without any resistance. An 8-Cambodian sheath was inserted over the guidewire without any resistance. Dilator was removed and a second guidewire was inserted through the 8-Cambodian sheath to allow for retained venous access. Sheath was removed, flushed, dilator reinserted over and then was reinserted along the guidewire. The guidewire and dilator removed. The right ventricular pacing lead was then advanced into right ventricle and positioned into right ventricular apex. Of note, I did have some difficulty having adequate sensing and threshold. I did have to unscrew it twice until it finally got a decent location. The blood pressure remained stable throughout. Then, there was no diaphragmatic stimulation with high output pacing. An 8-Cambodian sheath was peeled away and lead was fixated to pectoralis muscle using 0 silk suture. A second 8-Cambodian sheath was inserted over the retained guidewire without any resistance. The guidewire and dilator removed and the right atrial lead was advanced into right atrium and positioned into right atrial appendage under fluoroscopic guidance. There was adequate sensing. The 8-Cambodian sheath was peeled away and lead was fixated to pectoralis muscle using 0 silk suture. We did try burst atrial pacing to get him out of the AFib, but that did not work, we tried this a number of times. A pacemaker pocket was created using blunt dissection over the pectoralis muscle within the pectoralis fascia. The pocket was flushed with copious amounts of bacitracin saline wash and inspected for hemostasis. Pulse generator was then attached to the leads, making sure that the pins were in appropriate position, passed set screw and set screws were all tightened. Pulse generator was then placed in the pocket, making sure that the leads were lying flat beneath the device. A stay stitch using 0 silk suture was used to secure this pectoralis muscle. Shamika stat was placed in the pocket as the patient is going back on Eliquis. The incision was then closed in 3-layer fashion using 2-0 Vicryl interrupted suture followed by 3-0 Vicryl interrupted suture followed by a 4-0 Monocryl running stitch and Dermabond was applied followed then by a Telfa and Micropore tape, followed then by a pressure dressing. Of note, upon sitting up and applying the pressure dressing, the patient did have a vagal response where he became diaphoretic and nauseous and pale. His pacemaker was stable. We checked a limited 2D echo, while he is still in the room and that did not show any effusion and placed in Trendelenburg, he started feeling better and was slowly sat up again and felt better. EQUIPMENT: 1. Generator is a [employer] Mary XT DR HERMINIA Gonzalez [id number], serial number [id number]. 2. Right atrial lead Medtronic 5076-52 cm, serial number [id number]. 3. Right ventricular lead, Medtronic 5076-58 cm, serial number [id number]. INTRAOPERATIVE TESTIN. Right atrial lead: Fib waves 2 millivolts, impedance 501 ohms. 2. Right ventricular lead: R-wave 8.9 millivolts, impedance 1083 ohms, threshold 0.7 volts at 0.4 milliseconds. FINAL MEASUREMENTS THROUGH THE DEVICE: 1. Right atrial lead: Fib waves 2.6 millivolts, impedance 494 ohms, no threshold testing. The patient is in AFib. 2. Right ventricular lead: R-wave 10.1 millivolts, impedance 1102 ohms, threshold 0.5 volts at 0.4 milliseconds. FINAL PARAMETERS: MVP-R 60/130, right atrial amplitude 3.5 volts, pulse width 0.4 milliseconds, sensitivity 0.3 millivolts. Right ventricular amplitude 3.5 volts, pulse width 0.4 milliseconds, sensitivity 1.2 millivolts. IMPRESSION: Successful implantation of a dual chamber rate responsive implantable permanent pacemaker under fluoroscopic guidance along with peripheral venogram secondary to tachybrady syndrome. PLAN: Monitor patient overnight. Start Eliquis and sotalol now 80 mg twice a day, and Eliquis 5 mg twice a day. Keep the pressure dressing on for at least 3 days. He can shower in days. He is not allowed to lift left elbow or left shoulder for 1 month. He cannot lift more than 10 pounds with the left arm for 2 weeks. He should have a device and wound check in our [facility] office next week. He is still scheduled for the cardiac CT in a couple weeks and a followup with me as already scheduled in about 1 month. We will monitor him for 6 doses of sotalol with daily EKGs. If he does not convert on his own with the sotalol after 4 doses, would consider repeat cardioversion. I attest to the content of the Intraoperative Record and any orders documented therein. Any exception s are noted below.
--- NOTE | 2019-03-13 15:49 | XRay Report ---
XR chest 1V portable CLINICAL HISTORY: post-pacemaker hypotension COMPARISON STUDY: 03/11/2019 FINDINGS: The heart is mildly enlarged. There is now evidence for a left subclavian dual-chamber cent ral venous pacemaker. There is no pneumothorax. The right ventricular lead termination is difficult t o assess due to overlying cardiac leads. There is no failure. There is no focal pulmonary consolidati on. There are postsurgical changes within the cervical spine.[ IMPRESSION: No evidence of pneumothorax status post placement of a left subclavian dual-chamber centr al venous pacemaker. Electronically signed by: Cristian Diez M.D. 03/13/2019 3:48 PM
[2019-03-13] MEDS: SOTALOL HCL 80 MG TAB PO SCH (16:27)
--- NOTE | 2019-03-13 16:55 | XRay Report ---
XR chest 2V routine CLINICAL HISTORY: 63 years-old Male presenting with s/p pacemaker placement. TECHNIQUE: Portable upright AP view of the chest was obtained. COMPARISON: 03/13/2019 at 3:30 PM. FINDINGS: Left subclavian pacer with leads in the right atrium and right ventricular apex. Atherosclerosis of t he aortic arch. Cardiac silhouette mildly enlarged. No focal opacity. No large effusion or pneumothor ax. Degenerative changes of the thoracic spine. Upper abdomen normal. IMPRESSION: 1. Unchanged appearance of the 2-lead left subclavian pacer. No pneumothorax. 2. Mild cardiomegaly. Electronically signed by: Stephen Womack M.D. 03/13/2019 4:53 PM
[2019-03-13] MEDS: ACETAMINOPHEN 325 MG TAB PO PRN (18:33)
[2019-03-13] MEDS: APIXABAN 5 MG TABLET PO SCH ×2 (18:33→20:59)
[2019-03-13] MEDS: TRAMADOL HCL 50 MG TABLET PO PRN (18:33)
[2019-03-13] MEDS ORDERED: SODIUM CHLORIDE 0.9% 1000ML 1,000 ML IV SCH (18:39)
[2019-03-13] MEDS ORDERED: MoRPHine SULFATE 2 MG/ML CARP IV STA (20:53)
[2019-03-14] MEDS ORDERED: SOTALOL HCL 80 MG TAB PO ONE ×2 (03:00→13:00)
--- NOTE | 2019-03-14 06:45 | XRay Report ---
XR chest 2V routine HISTORY: 63 years-old Male s/p implant status post placement of a left subclavian pacer COMPARISON: Chest radiograph 03/13/2019 TECHNIQUE: PA and lateral views of the chest FINDINGS: Lateral view is limited secondary to positioning of the patient's left upper extremity. Left subclavi an pacer appears in unchanged positioning. Cardiomediastinal and hilar silhouettes are unchanged. No pneumothorax, pleural effusion, focal airspace consolidation or overt pulmonary edema. Degenerative c hanges of the shoulders and spine. Partially imaged cervical spine fusion hardware. IMPRESSION: 1. Unchanged positioning of the left subclavian pacer. 2. No pneumothorax The above report was generated using voice recognition software. It may contain grammatical, syntax o r spelling errors. Electronically signed by: Jose Angel Adame M.D. 03/14/2019 6:44 AM
[2019-03-14 07:37] LABS: Basophils # (auto) 0.04 K/uL (0-0.2); Basophils % (auto) 0.3 %; Eosinophils # (auto) 0.23 K/uL (0-0.5); Eosinophils % (auto) 1.9 %; Hematocrit (blood only) 41.4 % (42-52); Hemoglobin 14.6 g/dL (14.0-18.0); Immature Granulocytes # (auto) 0.04 K/uL (0.00-0.02); Immature Granulocytes % (auto) 0.3 %; Lymphocytes # (auto) 1.97 K/uL (1.2-3.4); Lymphocytes % (auto) 16.6 %; Mean Corpuscular Volume 85.5 fL (80-100); Mean Platelet Volume 9.2 fL (7.4-10.4); Monocytes % (auto) 9.3 %; Neutrophils # (auto) 8.48 K/uL (1.4-6.5); Neutrophils % (auto) 71.6 %; Platelet Count 249 K/uL (130-400); RDW Coefficient of Variation 13.7 % (11.5-14.5); RDW Standard Deviation 42.6 fL (36.4-46.3); Red Blood Count 4.84 M/uL (4.7-6.1); White Blood Count 11.86 K/uL (4.8-10.8)
[2019-03-14 07:39] LABS: Mean Corpuscular Hgb Conc 35.3 g/dL (32-36)
[2019-03-14 07:54] LABS: Albumin Level 3.5 gm/dl (3.4-5.0); BUN Creatinine Ratio 18.5 (10-20); Calcium 9.1 mg/dl (8.5-10.1); Creatinine Clr Calc Pharmacy 73.7 ml/min; Est GFR (African American) 75.2; Est GFR (Non-African American) 64.9; Magnesium 2.4 mg/dl (1.8-2.4); Potassium 4.2 mmol/L (3.5-5.1)
[2019-03-14 07:57] LABS: Bilirubin,Total 0.6 mg/dl (0.2-1); Globulin 3.6 gm/dl (2.5-4.0); Total Protein 7.1 gm/dl (6.4-8.2)
--- NOTE | 2019-03-14 07:57 | Cardiology Progress Note ---
Date of Service March 14, 2019 Subjective Pt did ok overnight; feels better this am-no more of that lightheadedness and diaphoresis he got 1 dose of sotalol the 2nd dose was held by hospitalist for concerns of low BP Review of Systems Review of Systems: All systems reviewed & are unremarkable except as noted in HPI & below Physical Exam Physical Exam: aaox3, NAD NC/AT, EOMI Supple No JVD irregular S1/S2, No murmur CTA b/l no w/r/r soft nt/nd no LE edema b/l skin intact no focal deficits Results & Data Vital Signs (Past 12 Hours) Vital Signs Temp Pulse Resp BP Pulse Ox 03/14/19 02:51 36.4 C L 56 L 18 96/68 L 94 03/13/19 23:04 36.4 C L 54 L 19 99/63 L 96 03/13/19 21:30 99/63 L 03/13/19 20:45 65 98/33 L ECG: atrial fib QTc 431ms pacemaker interrogation: normal lead testing and function AF with VS
[2019-03-14] MEDS: PANTOprazole 40 MG TAB PO SCH (08:21)
[2019-03-14] MEDS: FENOFIBRATE NANOCRYSTALLIZED 145 MG TABLET PO SCH (08:21)
[2019-03-14] MEDS: APIXABAN 5 MG TABLET PO SCH ×2 (08:21→20:45)
[2019-03-14] MEDS: SOTALOL HCL 80 MG TAB PO SCH ×2 (08:21→20:46)
[2019-03-14] MEDS: TAMSULOSIN HCL 0.4 MG CAP PO SCH (08:22)
[2019-03-14] MEDS: ASPIRIN 81 MG ECTAB PO SCH (08:22)
[2019-03-14] MEDS: ROSUVASTATIN CALCIUM 10 MG TAB PO SCH (08:22)
[2019-03-14] MEDS: POLYETHYLENE (MIRALAX) 17 GM PACK PO SCH (08:26)
--- NOTE | 2019-03-14 10:06 | Hospitalist Progress Note ---
Date of Service March 14, 2019 Assessment & Plan (1) Atrial fibrillation/flutter: s/p pacemaker placement on this admission -This is a patient with recent VIRGIE cardioversion with subsequent stunned myocardium and subsequent acute diastolic heart failure for which he was discharged after diuretic treatment and also had symptomatic bradycardia for which beta bree was discontinued. -Patient returned on this hospital stay with chest pain and in atrial fibrillation which was a symptomatic rhythm for him -s/p pacemaker placement on 03/13/19 with instructions of Keep the pressure dressing on for at least 3 days; not allowed to lift left elbow or left shoulder for 1 month; cannot lift more than 10 pounds with the left arm for 2 weeks -Patient was started on Sotalol after pacemaker placement and to get a total of 6 doses of sotalol with daily EKGs, will expect the loading dosing to be completed by Monday03/16/19 -as of this time, patient is on Eliquis 5 mg BID, continue -For when patient completes the Sotalol loading in the hospital he is expected to follow up primary care 03/20/2019 3:00 PM Provider Vikki Turcios PA-C Department [facility] pacemaker check and wound check on 03/22/2019 8:00 AM Provider Pacer [facility] Department Cardiology, [facility] cardiac CT on 03/26/2019 12:[address] [facility] Department Radiology [address] cardiology follow up 04/12/2019 9:30 AM Provider Damaris Mccallum DO Department Cardiology, [facility] (2) Tachy-yi syndrome: -management as above (3) Chest pain: -no chest pain at this time -Continue supportive care with Pantoprazole, dilaudid, acetaminophen prn -cardiac CT on 03/26/2019 12:[address] [facility] Department Radiology [address] (4) DVT prophylaxis: Anticoagulated by anticoagulation therapy -on Eliquis Full Code Subjective As per nurse, the 3 AM dosing of Sotalol was pushed back later in the morning because of concern of patient feeling dizziness. Patient ambulating in the hallway. Currently denies any dizziness or lightheadedness. no chest pain. no shortness of breath. no vomiting. heart rate is paced. continues to be in atrial fibrillation Physical Exam Constitutional: comfortable Eyes: PERRL, conjunctivae normal, anicteric sclerae EOM intact bilaterally ENMT: external ear and nose normal, oropharynx normal Neck: trachea midline, no thyromegaly normal visual inspection Respiratory: normal respiratory effort, lungs clear to auscultation Cardiovascular: Rate/Rhythm: + bradycardic heart rate is paced. continues to be in atrial fibrillation Gastrointestinal (Abdomen): normal bowel sounds, soft, nontender, no hepatosplenomegaly Musculoskeletal: Head/Neck/Chest: normocephalic and head atraumatic dressing over left shoulder over pacemaker site Neurologic: PERRL, EOMI, accommodation nl, no face palsy, no dysarthria CN's II-XI intact bilaterally Psychiatric: A+Ox3, euthymic affect Results & Data Vital Signs (Past 12 Hours) Vital Signs Temp Pulse Resp BP Pulse Ox 03/14/19 07:45 35.6 C L 56 L 18 100/64 94 03/14/19 02:51 36.4 C L 56 L 18 96/68 L 94 03/13/19 23:04 36.4 C L 54 L 19 99/63 L 96
[2019-03-14] MEDS: TRAMADOL HCL 50 MG TABLET PO PRN ×2 (12:43→21:09)
[2019-03-14] MEDS: ACETAMINOPHEN 325 MG TAB PO PRN ×2 (12:43→21:09)
[2019-03-14] MEDS ORDERED: metHOTREXate sodium 2.5 MG TAB PO STA (14:25)
[2019-03-15] MEDS: TRAMADOL HCL 50 MG TABLET PO PRN ×2 (03:17→19:04)
[2019-03-15 07:27] LABS: Basophils # (auto) 0.03 K/uL (0-0.2); Basophils % (auto) 0.3 %; Eosinophils % (auto) 1.8 %; Hematocrit (blood only) 41.3 % (42-52); Hemoglobin 14.3 g/dL (14.0-18.0); Immature Granulocytes # (auto) 0.04 K/uL (0.00-0.02); Immature Granulocytes % (auto) 0.4 %; Lymphocytes # (auto) 1.55 K/uL (1.2-3.4); Lymphocytes % (auto) 13.8 %; Mean Corpuscular Volume 85.7 fL (80-100); Mean Platelet Volume 9.2 fL (7.4-10.4); Monocytes % (auto) 10.7 %; Neutrophils # (auto) 8.19 K/uL (1.4-6.5); Platelet Count 253 K/uL (130-400); RDW Coefficient of Variation 13.5 % (11.5-14.5); RDW Standard Deviation 41.7 fL (36.4-46.3); Red Blood Count 4.82 M/uL (4.7-6.1); White Blood Count 11.21 K/uL (4.8-10.8)
[2019-03-15 07:45] LABS: Albumin Level 3.7 gm/dl (3.4-5.0); BUN Creatinine Ratio 18.8 (10-20); Calcium 8.8 mg/dl (8.5-10.1); Creatinine Clr Calc Pharmacy 70.5 ml/min; Est GFR (African American) 71.6; Est GFR (Non-African American) 61.8; Magnesium 2.2 mg/dl (1.8-2.4); Potassium 4.2 mmol/L (3.5-5.1)
[2019-03-15 07:47] LABS: Bilirubin,Total 0.8 mg/dl (0.2-1); Globulin 3.6 gm/dl (2.5-4.0); Total Protein 7.3 gm/dl (6.4-8.2)
[2019-03-15] MEDS ORDERED: fentaNYL citrate 100 MCG/2 ML VIAL ONE (07:48)
[2019-03-15] MEDS ORDERED: MIDAZOLAM HCL 1 MG/ML 2ML VIAL ONE (07:49)
[2019-03-15 08:01] LABS: Mean Corpuscular Hgb Conc 34.6 g/dL (32-36)
--- NOTE | 2019-03-15 08:32 | History & Physical Bridge Note ---
Date of Service March 15, 2019 History & Physical Bridge Note I have examined the patient, reviewed the History & Physical and in the interval since the performance of the History & Physical I have noted the following changes of clinical significance: no changes noted
--- NOTE | 2019-03-15 08:32 | Pre Anesthesia Assessment ---
Date of Service March 15, 2019 Pre Sedation Assessment Vital Signs Temp Pulse Resp BP Pulse Ox 03/15/19 04:20 36.4 C L 57 L 17 99/65 L 96 03/14/19 23:02 36.6 C 64 18 108/72 95 03/14/19 20:44 75 108/73 03/14/19 19:31 36.7 C 76 18 99/65 L 95 03/14/19 16:23 36.6 C 61 18 94/61 L 96 03/14/19 11:01 66 18 107/77 97 Pre-Sedation Airway Assessment Smoking Status: Former smoker Hx Sleep Apnea: No Hx Difficult Intubation: No Short, Thick Neck: No Thyromental Distance: > or= 3.5 Finger Breadths Oral Cavity: + WNL Mallampati Class: II ASA: ASA3 NPO Status Date of Last Intake of Fluids: 03/14/19 Time of Last Intake of Fluids: 21:00 Date of Last Intake of Solid Food: 03/14/19 Time of Last Intake of Solid Foods: 21:00 Notes The planned sedation has been discussed with the patient. Informed Consent was obtained. I have identified the patient, determined the appropriateness of sedation and have assessed the patient immediately prior to the procedure. All medicine(s) and interventions are by my order.
--- NOTE | 2019-03-15 08:53 | Post Anesthesia Assessment ---
Date of Service March 15, 2019 Post Sedation Assessment Vital Signs Temp Pulse Pulse Resp BP BP Pulse Ox 03/15/19 08:43 58 L 16 103/66 100 03/15/19 08:37 72 16 103/66 100 03/15/19 04:20 36.4 C L 57 L 17 99/65 L 96 03/14/19 23:02 36.6 C 64 18 108/72 95 03/14/19 20:44 75 108/73 03/14/19 19:31 36.7 C 76 18 99/65 L 95 03/14/19 16:23 36.6 C 61 18 94/61 L 96 03/14/19 11:01 66 18 107/77 97 Recovery Score Activity: Moves 4 extremities Respiration: Deep Breath/Cough Circulation: +/-20% PreAnes Value Consciousness: Arouseable (by name) Oxygen Saturation: O2 needed for >90% Post Anesthesia Score: 8 Post Sedation Plan On clinical assessment, the patient appears to have tolerated the sedation without complications. Patient is recovering as anticipated. Patient will continue to be monitored by nursing and may be discharged when sedation discharge criteria are met per below protocol. Upon Completions of procedure and additional 15 minutes continue every 5 minute vital signs and the P.A.R. score; then discharge to a Phase I or Fast Track to Phase II per the following guidelines: * Discharge Patient to appropriate Phase II area if PAR is 8 or greater or return to pre- procedure baseline. The post - procedure orders will be as directed. * If PAR score is less than 8 or not return to pre-procedure baseline then patient will follow Phase I monitoring till PAR is reached for Phase II. The Phase I may be done in procedure room or may call to secure a Phase I area. * If naloxone or flumazenil are used for reversal, hold in Phase I for continued monitoring from when last reversal dose was given for a minimum of 60 minutes or longer pending the nurse and/or physician discretion of patient condition before discharge to Phase II. Please call the Sedation Physician to re-evaluate and complete post-note for discharge to Phase II area. Do NOT discharge from procedure sedation or Phase 1 until post- sedation evaluation note is complete by procedure /sedation MD Sedation Discharge Instructions to be given to the patient at discharge to home.
--- NOTE | 2019-03-15 08:58 | Operative Report ---
Post Operative Report Pre & Post Diagnosis Operation Date: 03/13/19 11:00 <No data on this case meets the specified criteria> Operation Date: 03/15/19 08:00 <No data on this case meets the specified criteria> Procedure Operation Date: 03/13/19 11:00 Actual Procedures p Pacer with A/V Leads (Dual) - Damaris Mccallum DO Operation Date: 03/15/19 08:00 <No data on this case meets the specified criteria> Surgeon Rod Castañeda, Woodworking Bench Carpenter none Estimated Blood Loss 15 Findings Consistent with Post-Op Diagnosis Specimens none Description of Procedure informed consent obtained pt prepped adequate moderate conscious sedation achieved with a total of Versed 2mg and Fentanyl 50mcg 360J of synchronized energy delivered with successful cardioversion to sinus/vpaced rhythm pt tolerated well recover per protocol and return to PCU start time:836 stop time: 842 I attest to the content of the Intraoperative Record and any orders documented therein. Any exceptions are noted below.
[2019-03-15] MEDS: FENOFIBRATE NANOCRYSTALLIZED 145 MG TABLET PO SCH (10:42)
[2019-03-15] MEDS: APIXABAN 5 MG TABLET PO SCH ×2 (10:42→20:31)
[2019-03-15] MEDS: TAMSULOSIN HCL 0.4 MG CAP PO SCH (10:42)
[2019-03-15] MEDS: PANTOprazole 40 MG TAB PO SCH (10:42)
[2019-03-15] MEDS: SOTALOL HCL 80 MG TAB PO SCH ×2 (10:42→20:31)
[2019-03-15] MEDS: ROSUVASTATIN CALCIUM 10 MG TAB PO SCH (10:42)
[2019-03-15] MEDS: POLYETHYLENE (MIRALAX) 17 GM PACK PO SCH (10:45)
--- NOTE | 2019-03-15 10:45 | Hospitalist Progress Note ---
Date of Service March 15, 2019 Assessment & Plan (1) Atrial fibrillation/flutter: s/p pacemaker placement on this admission s/p cardioversion on this admission -This is a patient with recent VIRGIE cardioversion with subsequent stunned myocardium and subsequent acute diastolic heart failure for which he was discharged after diuretic treatment and also had symptomatic bradycardia for which beta bree was discontinued. -Patient returned on this hospital stay with chest pain and in atrial fibrillation which was a symptomatic rhythm for him -s/p pacemaker placement on 03/13/19 with instructions of Keep the pressure dressing on for at least 3 days; not allowed to lift left elbow or left shoulder for 1 month; cannot lift more than 10 pounds with the left arm for 2 weeks -Patient was started on Sotalol after pacemaker placement and to get a total of 6 doses of sotalol with daily EKGs, will expect the loading dosing to be completed by Monday03/16/19 -cardioversion on 03/15/10 was performed by cardiology service: 360J of synchronized energy delivered with successful cardioversion to sinus/vpaced rhythm -as of this time, patient is on Eliquis 5 mg BID, continue -For when patient completes the Sotalol loading in the hospital he is expected to follow up primary care 03/20/2019 3:00 PM Provider Vikki Turcios PA-C Department [facility] pacemaker check and wound check on 03/22/2019 8:00 AM Provider Pacer Clinic [facility] Department Cardiology, [facility] cardiac CT on 03/26/2019 12:[address] [facility] Department Radiology [address] cardiology follow up 04/12/2019 9:30 AM Provider Damaris Mccallum DO Department Cardiology, [facility] (2) Tachy-yi syndrome: -management as above (3) Chest pain: -Continue supportive care with Pantoprazole, dilaudid, acetaminophen prn -cardiac CT on 03/26/2019 12:[address] [facility] Department Radiology [address] History of Psoriasis -on weekly oral methotrexate 12.5 mg (4) DVT prophylaxis: Anticoagulated by anticoagulation therapy -on Eliquis Full Code Subjective Patient on telemetry clay after returning from cardioversion today. left chest where pacemaker site is located is tender to touch. otherwise. no acute d istress. breathing on room air. awake and alert and cooperative on exam. no vomiting. no nausea. no headache. no dizziness. Physical Exam Constitutional: comfortable Eyes: PERRL, conjunctivae normal, anicteric sclerae EOM intact bilaterally ENMT: external ear and nose normal, oropharynx normal Neck: trachea midline, no thyromegaly normal visual inspection Respiratory: normal respiratory effort, lungs clear to auscultation Cardiovascular: Rate/Rhythm: + bradycardic Chest (Breasts): Additional Comments: left chest where pacemaker site is located is tender to touch, no drainage from incission site Gastrointestinal (Abdomen): normal bowel sounds, soft, nontender, no hepatosplenomegaly Musculoskeletal: Head/Neck/Chest: normocephalic and head atraumatic Neurologic: PERRL, EOMI, accommodation nl, no face palsy, no dysarthria CN's II-XI intact bilaterally Psychiatric: A+Ox3, euthymic affect Results & Data Vital Signs (Past 12 Hours) Vital Signs Temp Pulse Pulse Resp BP BP Pulse Ox 03/15/19 08:58 60 16 105/60 100 03/15/19 08:43 58 L 16 103/66 100 03/15/19 08:37 72 16 103/66 100 03/15/19 04:20 36.4 C L 57 L 17 99/65 L 96 03/14/19 23:02 36.6 C 64 18 108/72 95
[2019-03-15] MEDS: ASPIRIN 81 MG ECTAB PO SCH (10:46)
--- NOTE | 2019-03-15 10:48 | Cardiology Progress Note ---
Date of Service March 15, 2019 Assessment & Plan (1) Tachy-yi syndrome: Patient with recurrent atrial fibrillation, variable ventricular rates, ranging in the low 30's to 150's. Was not able to tolerate beta bree due to symptomatic bradycardia. tolerated pacemaker placement well, some rate adjustments were made now receiving sotalol load Dr. Mccallum's office will call to arrange follow up (2) Atrial fibrillation/flutter: Recurrent symptomatic atrial fibrillation. s/p PPM placement a dose of Sotalol held due to bradycardia, now tolerating well cont Eliquis cont Sotalol 80mg bid, sixth dose will be in AM of 03/16 cont to monitor on tele and daily ekg (3) Atypical chest pain: resolved with pacemaker placement f/u as an outpatient as scheduled (4) Diastolic heart failure: likely due to afib does not examine as volume overloaded currently will d/c home with prn lasix Subjective Pt seen and examined, tolerated cardioversion well. States that he's not had any recurrence of chest discomfort since pacer implant. Denies sob, palpitations, lightheadedness or dizziness. tele reviewed: sinus and alternating paced rhythm Review of Systems Review of Systems: All systems reviewed & are unremarkable except as noted in HPI & below Physical Exam Physical Exam: General: Awake, alert and oriented x 3. No acute distress. HEENT: Normocephalic, atraumatic. Pupils equal, round and reactive to light and accommodation. Extraocular muscles are intact. Anicteric sclera. Moist mucous membranes. Neck: No JVD. No bruit. Cardiovascular: Regular. Positive S-4. Normal S-1 and S-2. No S-3. No murmurs or rubs. Pulmonary: Clear to auscultation B/L. No rales, rhonchi or wheezing Abdomen: Bowel sounds x 4, soft. No rebound, guarding or tenderness. No organomegaly. Extremities: No clubbing, cyanosis or edema. +2 pedal pulses bilaterally. Skin: Warm and dry. Results & Data Vital Signs (Past 12 Hours) Vital Signs Temp Pulse Pulse Resp BP BP Pulse Ox 03/15/19 08:58 60 16 105/60 100 03/15/19 08:43 58 L 16 103/66 100 03/15/19 08:37 72 16 103/66 100 03/15/19 04:20 36.4 C L 57 L 17 99/65 L 96 03/14/19 23:02 36.6 C 64 18 108/72 95 (1) Diastolic heart failure Heart failure chronicity: chronic Qualified Code(s): I50.32 - Chronic diastolic (congestive) heart failure
[2019-03-16 07:48] LABS: Basophils # (auto) 0.03 K/uL (0-0.2); Basophils % (auto) 0.3 %; Eosinophils # (auto) 0.17 K/uL (0-0.5); Eosinophils % (auto) 1.9 %; Hematocrit (blood only) 36.1 % (42-52); Hemoglobin 12.3 g/dL (14.0-18.0); Immature Granulocytes # (auto) 0.02 K/uL (0.00-0.02); Immature Granulocytes % (auto) 0.2 %; Lymphocytes # (auto) 1.33 K/uL (1.2-3.4); Lymphocytes % (auto) 15.3 %; Mean Corpuscular Volume 85.5 fL (80-100); Mean Platelet Volume 9.2 fL (7.4-10.4); Monocytes # (auto) 0.88 K/uL (0.11-0.59); Monocytes % (auto) 10.1 %; Neutrophils # (auto) 6.29 K/uL (1.4-6.5); Neutrophils % (auto) 72.2 %; Platelet Count 231 K/uL (130-400); RDW Coefficient of Variation 13.5 % (11.5-14.5); RDW Standard Deviation 42.1 fL (36.4-46.3); Red Blood Count 4.22 M/uL (4.7-6.1); White Blood Count 8.72 K/uL (4.8-10.8)
[2019-03-16] MEDS: TRAMADOL HCL 50 MG TABLET PO PRN (08:04)
[2019-03-16] MEDS: APIXABAN 5 MG TABLET PO SCH (08:05)
[2019-03-16] MEDS: SOTALOL HCL 80 MG TAB PO SCH (08:05)
[2019-03-16] MEDS: PANTOprazole 40 MG TAB PO SCH (08:05)
[2019-03-16] MEDS: ASPIRIN 81 MG ECTAB PO SCH (08:06)
[2019-03-16] MEDS: TAMSULOSIN HCL 0.4 MG CAP PO SCH (08:06)
[2019-03-16] MEDS: ROSUVASTATIN CALCIUM 10 MG TAB PO SCH (08:06)
[2019-03-16] MEDS: FENOFIBRATE NANOCRYSTALLIZED 145 MG TABLET PO SCH (08:06)
[2019-03-16 08:07] LABS: BUN Creatinine Ratio 17.6 (10-20); Calcium 9.4 mg/dl (8.5-10.1); Creatinine Clr Calc Pharmacy 69.7 ml/min; Est GFR (African American) 70.2; Est GFR (Non-African American) 60.6; Potassium 4.2 mmol/L (3.5-5.1)
[2019-03-16 08:08] LABS: Mean Corpuscular Hgb Conc 34.1 g/dL (32-36)
[2019-03-16] MEDS: POLYETHYLENE (MIRALAX) 17 GM PACK PO SCH (10:53)
--- NOTE | 2019-03-16 12:00 | Cardiology Progress Note ---
Date of Service March 16, 2019 Assessment & Plan (1) Tachy-yi syndrome: Patient with recurrent atrial fibrillation, variable ventricular rates, ranging in the low 30's to 150's. Was not able to tolerate beta bree due to symptomatic bradycardia. tolerated pacemaker placement well, some rate adjustments were made now receiving sotalol load Dr. Mccallum's office will call to arrange follow up (2) Atrial fibrillation/flutter: Recurrent symptomatic atrial fibrillation. s/p PPM placement tolerated sotalol load and QTc of 420-430 ms after 6th dose cont Eliquis script for sotalol sent via [employer] yesterday d/c home on sotalol 80mg po bid ok to d/c to home (3) Atypical chest pain: resolved with pacemaker placement f/u as an outpatient as scheduled (4) Diastolic heart failure: likely due to afib does not examine as volume overloaded currently would d/c to home with lasix 20mg po bid prn sob Subjective Pt seen and examined, at bedside. States that he feels great. Denies cp, sob, palpitations, lightheadedness or dizziness. tele reviewed: av paced Review of Systems Review of Systems: All systems reviewed & are unremarkable except as noted in HPI & below Physical Exam Physical Exam: General: Awake, alert and oriented x 3. No acute distress. HEENT: Normocephalic, atraumatic. Pupils equal, round and reactive to light and accommodation. Extraocular muscles are intact. Anicteric sclera. Moist mucous membranes. Neck: No JVD. No bruit. Cardiovascular: Regular. Positive S-4. Normal S-1 and S-2. No S-3. No murmurs or rubs. Pulmonary: Clear to auscultation B/L. No rales, rhonchi or wheezing Abdomen: Bowel sounds x 4, soft. No rebound, guarding or tenderness. No organomegaly. Extremities: No clubbing, cyanosis or edema. +2 pedal pulses bilaterally. Skin: Warm and dry. Results & Data Vital Signs (Past 12 Hours) Vital Signs Temp Pulse Pulse Resp BP Pulse Ox 03/16/19 11:11 36.7 C 55 L 18 104/63 94 03/16/19 08:00 55 L 03/16/19 07:16 36.6 C 55 L 18 103/70 95 03/16/19 03:46 36.5 C 55 L 16 105/67 96 03/16/19 00:18 36.6 C 56 L 17 106/66 97 (1) Diastolic heart failure Heart failure chronicity: chronic Qualified Code(s): I50.32 - Chronic diastolic (congestive) heart failure
--- NOTE | 2019-03-16 12:46 | Hospitalist Progress Note ---
Date of Service March 16, 2019 Assessment & Plan (1) Atrial fibrillation/flutter: s/p pacemaker placement on this admission s/p cardioversion on this admission Diastolic heart failure -This is a patient with recent VIRGIE cardioversion with subsequent stunned myocardium and subsequent acute diastolic heart failure for which he was discharged after diuretic treatment and also had symptomatic bradycardia for which beta bree was discontinued. -Patient returned on this hospital stay with chest pain and in atrial fibrillation which was a symptomatic rhythm for him -s/p pacemaker placement on 03/13/19 with instructions of Keep the pressure dressing on for at least 3 days; not allowed to lift left elbow or left shoulder for 1 month; cannot lift more than 10 pounds with the left arm for 2 weeks -Patient was started on Sotalol after pacemaker placement and to get a total of 6 doses of sotalol with daily EKGs, will expect the loading dosing to be completed by Monday03/16/19 -cardioversion on 03/15/10 was performed by cardiology service: 360J of synchronized energy delivered with successful cardioversion to sinus/vpaced rhythm -as of this time, patient is on Eliquis 5 mg BID, continue -completed Sotalol loading in the hospital on 03/16/19;Patient's family already picked up discharge prescription of 80 mg BID of sotalol -no shortness of breath currently; but cardiology service recommends patient may take Lasix (Furosemide) prescription 20mg oral twice a day as needed if shortness of breath -patient does have tenderness of touch over the pacemaker site: [place] PDMP was checked and prior to this hospital stay patient does not have active controlled medications in past 1 year. Patient may take tramadol prescription of 50 mg every 6 hours as needed for moderate to severe pain (16 tablet prescribed) Patient may take acetaminophen prescription 325 mg every 6 hours as needed for mild pain or fever -follow ups primary care 03/20/2019 3:00 PM Provider Vikki Turcios PA-C Department [facility] pacemaker check and wound check on 03/22/2019 8:00 AM Provider Pacer Clinic [facility] Department Cardiology, [facility] cardiac CT on 03/26/2019 12:30 PM [address] [facility] Department Radiology [address] cardiology follow up 04/12/2019 9:30 AM Provider Damaris Mccallum DO Department Cardiology, [facility] (2) Tachy-yi syndrome: -management as above (3) Chest pain: -Continue supportive care with Pantoprazole, dilaudid, acetaminophen prn -cardiac CT on 03/26/2019 12:30 PM Provider [address] [facility] Department Radiology [facility] 1st Floor, [place] History of Psoriasis -on weekly oral methotrexate 12.5 mg (4) DVT prophylaxis: Anticoagulated by anticoagulation therapy -on Eliquis Full Code Discharge Diagnosis Atrial fibrillation/flutter; Tachy-yi syndrome; s/p pacemaker placement on this admission; s/p cardioversion on this admission; chest pain; diastolic heart failure Subjective patient's chest over the pace maker site is still sensitive and tender to the touch. no drainage. completed sotalol loading. no dizziness. no lightheadedness. no vomiting. no abdomen pain. no headache. discharge as per cardiology service and discharge plans were discussed at length with patient Physical Exam Constitutional: comfortable Eyes: PERRL, conjunctivae normal, anicteric sclerae EOM intact bilaterally ENMT: external ear and nose normal, oropharynx normal Neck: trachea midline, no thyromegaly normal visual inspection Respiratory: normal respiratory effort, lungs clear to auscultation Cardiovascular: Rate/Rhythm: + bradycardic Chest (Breasts): Breast: + breast tenderness (tenderness over the pacemaker site to the touch) Gastrointestinal (Abdomen): normal bowel sounds, soft, nontender, no hepatosplenomegaly Musculoskeletal: Head/Neck/Chest: normocephalic and head atraumatic Neurologic: PERRL, EOMI, accommodation nl, no face palsy, no dysarthria CN's II-XI intact bilaterally Psychiatric: A+Ox3, euthymic affect Results & Data Vital Signs (Past 12 Hours) Vital Signs Temp Pulse Pulse Resp BP BP Pulse Ox 03/16/19 12:21 36.7 C 55 L 18 113/72 104/63 94 03/16/19 11:11 36.7 C 55 L 18 104/63 94 03/16/19 08:00 55 L 03/16/19 07:16 36.6 C 55 L 18 103/70 95 03/16/19 03:46 36.5 C 55 L 16 105/67 96
--- NOTE | 2019-03-16 12:52 | Discharge Summary ---
Date of Service March 16, 2019 Admission HPI Per Admitting Provider History obtained from patient, family, and records. Medical history significant for chronic diastolic heart failure (EF 55 to 60%, recent VIRGIE 2018), DALY. nupur on Eliquis, history symptomatic bradycardia, hypertension, hyperlipidemia, GERD, chronic anemia baseline hemoglobin of 12, past tobacco abuse, history psoriasis on methotrexate. Recent confinement March 08March 10, 2019 for acute CHF post VIRGIE cardiov ersion. Found to have symptomatic bradycardia during confinement. Home beta-bree rx stopped. As per Cardiology note, PPM placement to be done for long-term management. Plan evaluation for ischemic heart disease with cardiac CT in the next 1 to 2 weeks as per note. At home, achy headache symptoms with some relief from intermittent OTC NSAID intake. At home yesterday afternoon, patient noted achy substernal/epigastric discomfort different from heartburn with some shortness of breath. No cough symptoms. Some relief with nitroglycerin administration at the ER. Medical History as above Surgical History : Back surgery Family History : Heart disease, dementia Personal/Social history : Past tobacco abuse, no EtOH intake, window replacement work Admission Exam Per Admitting Provider GENERAL: Comfortable, pleasant, slightly anxious, no respiratory distress SKIN: Pallor , warm HEENT: Bespectacled, pale palpebral conjunctivae, no ptosis, dry buccal mucosa NECK : Supple, no tenderness CHEST : CTA, no tenderness HEART : Irregular , systolic murmur ABDOMEN: Some distention, nontender EXTREMITIES : No LE swelling/tenderness, no other conspicuous deformities noted NEUROLOGIC : Coherent, no facial asymmetry, no other gross focality Principal Diagnosis Atrial fibrillation/flutter; Tachy-yi syndrome; s/p pacemaker placement on this admission; s/p cardioversion on this admission; chest pain; diastolic heart failure Discharge Exam Constitutional comfortable Eyes PERRL, conjunctivae normal, anicteric sclerae EOM intact bilaterally ENMT external ear and nose normal, oropharynx normal Neck trachea midline, no thyromegaly normal visual inspection Respiratory normal respiratory effort, lungs clear to auscultation Cardiovascular Rate/Rhythm: + bradycardic Chest (Breasts) Breast: + breast tenderness (tenderness over the pacemaker site to the touch) Gastrointestinal (Abdomen) normal bowel sounds, soft, nontender, no hepatosplenomegaly Musculoskeletal Head/Neck/Chest: normocephalic and head atraumatic Neurologic PERRL, EOMI, accommodation nl, no face palsy, no dysarthria CN's II-XI intact bilaterally Psychiatric A+Ox3, euthymic affect Discharge Data Allergies Allergy/AdvReac Type Severity Reaction Status Date / Time hydrocodone [From Vicodin] Allergy Hives Verified 03/11/19 22:41 propoxyphene Allergy Hives Verified 03/11/19 22:41 [From Darvocet-N] atorvastatin [From Lipitor] AdvReac Muscle Pain Verified 03/11/19 22:41 sulfamethoxazole AdvReac Chills/mallory Verified 03/11/19 22:41 [From Bactrim] rs trimethoprim [From Bactrim] AdvReac Chills/mallory Verified 03/11/19 22:42 rs Consultations 03/11/19 22:58 ED Decision to Admit Stat 03/12/19 02:25 Consult Cardiology Routine Procedures Performed Operation Date: 03/13/19 11:00 Actual Procedures p Pacer with A/V Leads (Dual) - Damaris Mccallum DO Operation Date: 03/15/19 08:00 Actual Procedures p Cardioversion(Not Applicable) - Rod Castañeda, Ordered Studies 03/12/19 00:19 CT head/brain wo con Urgent 03/13/19 06:30 EP Lab Images for PACS ONCE Hospital Course (1) Atrial fibrillation/flutter: s/p pacemaker placement on this admission s/p cardioversion on this admission Diastolic heart failure -This is a patient with recent VIRGIE cardioversion with subsequent stunned myocardium and subsequent acute diastolic heart failure for which he was discharged after diuretic treatment and also had symptomatic bradycardia for which beta bree was discontinued. -Patient returned on this hospital stay with chest pain and in atrial fibrillation which was a symptomatic rhythm for him -s/p pacemaker placement on 03/13/19 with instructions of Keep the pressure dressing on for at least 3 days; not allowed to lift left elbow or left shoulder for 1 month; cannot lift more than 10 pounds with the left arm for 2 weeks -Patient was started on Sotalol after pacemaker placement and to get a total of 6 doses of sotalol with daily EKGs, will expect the loading dosing to be completed by Monday03/16/19 -cardioversion on 03/15/10 was performed by cardiology service: 360J of synchronized energy delivered with successful cardioversion to sinus/vpaced rhythm -as of this time, patient is on Eliquis 5 mg BID, continue -completed Sotalol loading in the hospital on 03/16/19;Patient's family already picked up discharge prescription of 80 mg BID of sotalol -no shortness of breath currently; but cardiology service recommends patient may take Lasix (Furosemide) prescription 20mg oral twice a day as needed if shortness of breath -patient does have tenderness of touch over the pacemaker site[facility] and prior to this hospital stay patient does not have active controlled medications in past 1 year. Patient may take tramadol prescription of 50 mg every 6 hours as needed for moderate to severe pain (16 tablet prescribed) Patient may take acetaminophen prescription 325 mg every 6 hours as needed for mild pain or fever -follow ups primary care 03/20/2019 3:00 PM Provider Vikki Turcios PA-C Department [place] pacemaker check and wound check on 03/22/2019 8:00 AM Provider Pacer Clinic [facility] Department Cardiology, [facility] cardiac CT on 03/26/2019 12:30 PM [address] [facility] Department Radiology [address] cardiology follow up 04/12/2019 9:30 AM Provider Damaris Mccallum DO Department Cardiology, [facility] (2) Tachy-yi syndrome: -management as above (3) Chest pain: -Continue supportive care with Pantoprazole, dilaudid, acetaminophen prn -cardiac CT on 03/26/2019 12:30 PM Provider [address] [facility] Department Radiology [address] History of Psoriasis -on weekly oral methotrexate 12.5 mg (4) DVT prophylaxis: Anticoagulated by anticoagulation therapy -on Eliquis Full Code Discharge Diagnosis Atrial fibrillation/flutter; Tachy-yi syndrome; s/p pacemaker placement on this admission; s/p cardioversion on this admission; chest pain; diastolic heart failure Total Time Total Time Spent Total Time Spent (In Minutes): 40 minutes Total Time Includes: Examination of the Patient, Discharge Planning, Medication Reconciliation and Communication With Other Providers Discharge Plan Discharge Items Patient Disposition: Home - Self-Care Reason For Visit: CHEST PAIN Discharge Diagnosis: Atrial fibrillation/flutter; Tachy-yi syndrome; s/p pacemaker placement on this admission; s/p cardioversion on this admission; chest pain; diastolic heart failure Condition: Fair Discharge Goals: Improve disease control Activity: As commented below Activity Comment: do not lift the left elbow over the left shoulder for 1 month Lifting: No more than 10 pounds Lifting Comment: do not lift more than 10 pounds with the left arm for 2 weeks Bathing: Keep incision dry Bathing Comment: can shower monday-let water run over the incision do not scrub it Sexual Activity: After two weeks Driving/Machine Use: Resume 1 day after discharge Non-emergency contact: Food And Beverage Director Call non-emergency contact if: you have any medication questions Follow-up/Referrals: Vikki Turcios PA-C [Primary Care Provider] - Diet: Heart Healthy Addtl Provider Instructions: Discharge to Home [place] PDMP was checked and prior to this hospital stay patient does not have active controlled medications in past 1 year. Patient may take tramadol prescription of 50 mg every 6 hours as needed for moderate to severe pain (16 tablet prescribed) Patient may take acetaminophen prescription 325 mg every 6 hours as needed for mild pain or fever As per cardiology service, patient may take Lasix (Furosemide) prescription 20mg oral twice a day as needed if shortness of breath Patient's family already picked up discharge prescription of 80 mg BID of sotalol pacemaker device and wound check at [facility] Cardiology next week 03/20/2019 3:00 PM Provider Vikki Turcios PA-C Department [place] 03/22/2019 8:00 AM Provider Pacer Clinic [facility] Department Cardiology, [facility] 03/26/2019 12:30 PM [address] [facility] Department Radiology [facility] 04/12/2019 9:30 AM Provider Damaris Mccallum DO Department Cardiology, [facility] Prescriptions: New acetaminophen 325 mg tablet 325 mg PO Q6H PRN (Reason: fever or pain) 4 Days Qty: 16 RF: 0 tramadol 50 mg Tablet 50 mg PO Q6H PRN (Reason: moderate to severe pain) 4 Days Qty: 16 RF: 0 sotalol 80 mg Tablet 80 mg PO BID 30 Days Qty: 60 RF: 0 furosemide [Lasix] 20 mg tablet 20 mg PO BID PRN (Reason: shortness of breath) 30 Days Qty: 60 RF: 0 Continued polyethylene glycol 3350 [Miralax] 17 gram Powder In Packet 17 g PO DAILY RF: 0 fenofibrate micronized 134 mg Capsule 134 mg PO DAILY RF: 0 methotrexate sodium 2.5 mg Tablet 12.5 mg PO WK RF: 0 tamsulosin [Flomax] 0.4 mg Capsule 0.4 mg PO DAILY RF: 0 lansoprazole [Prevacid] 30 mg Capsule,Delayed Release(Dr/Ec) 30 mg PO DAILY RF: 0 rosuvastatin [Crestor] 10 mg Tablet 10 mg PO DAILY RF: 0 Eliquis 5 mg Tablet 5 mg PO BID RF: 0 Stand-Alone Forms: Call Back Authorization, [facility] Discharge Orders: Discharge Order (Routine); Ordered 03/16/19 Ordered By: Kirby Bragg Admission Data Admit Date/Time: 03/12/19 20:11 Attending Provider: Kirby Bragg Admit Provider: Jose Francisco Marino Primary Care Provider: Vikki Turcios Other Providers: Jose Francisco Marino ; Sourav Rudd Service: Telemetry
== END 2019-03-16 13:12 | disposition home or self-care (01) | DRG 243 ==
LOC: ED 21:50 → 2S 21:50 → SUATTDRO 03-12 20:11
DX: Z88.5 Allergy status to narcotic agent; I11.0 Hypertensive heart disease with heart failure; L40.9 Psoriasis, unspecified; E78.2 Mixed hyperlipidemia; Z82.0 Family history of epilepsy and other diseases of the nervous system; I48.91 Unspecified atrial fibrillation; K21.9 Gastro-esophageal reflux disease without esophagitis; I50.32 Chronic diastolic (congestive) heart failure; I49.5 Sick sinus syndrome; Z88.2 Allergy status to sulfonamides; Z82.49 Family history of ischemic heart disease and other diseases of the circulatory system